=== PATIENT | male | born 1935 | race Caucasian/White ===

== ENCOUNTER 2020-12-13 14:13 | Outpatient (CLI) | payer MEDICARE, SELFPAY ==
--- NOTE | ~2020-12-13 | US_ITS ---
EXAMINATION: US art doppler w lilian LE BI DATE: 12/13/2020 14:56 INDICATION: Pulseless left foot TECHNIQUE: Segmental pressures and plethysmographic and Doppler waveforms of the brachial and lower e xtremity arteries were obtained. COMPARISON: None. FINDINGS: Right and left brachial artery pressures of 126 mm Hg and 136 mm Hg, respectively, are concordant (no rmal difference <= 30 mmHg). The right and left high-thigh pressure indices are 0.95 and 0.76, respec tively (normal > 1.2). The right ankle-brachial index (IVAN) is 0.85 (normal >= 0.9-1). The right great toe-brachial index (T BI) is 0.67 (normal >= 0.6-0.8). The right lower extremity segmental pressure gradients are increased between the right pnahv-sib-cpla and cdrwz-dwb-medz popliteal artery and between the right dorsalis pedis and posterior tibial artery (normal gradients <= 20-30 mmHg between adjacent levels on the same leg or the same levels on the two legs). Arterial waveforms are biphasic with brisk systolic upstrok es at both the right common femoral and superficial femoral arteries. Biphasic waveforms but with bro adened systolic peaks and delayed upstrokes at the right popliteal, posterior tibial and more promine ntly dorsalis pedis arteries. The left IVAN is 0.58. The left TBI is 0.82. The left lower extremity segmental pressure gradients are increased between the left gcser-wlo-krfm popliteal artery and the dorsalis pedis and posterior tibi al arteries. Arterial waveforms are biphasic with brisk systolic upstrokes at the left common femoral , superficial femoral and popliteal arteries with mildly delayed upstroke at the left posterior tibia l artery and more prominent broadening of the systolic peak and delayed upstroke at the left dorsalis pedis artery. IMPRESSION: 1. Arterial occlusive disease to the bilateral lower limbs with mildly right high thigh pressure inde x and IVAN and moderately decreased left high thigh pressure index and IVAN. Reviewed, dictated and finalized at location A. INSTALLER IMPRESSION: 1. Arterial occlusive disease to the bilateral lower limbs with mildly right hi gh thigh pressure index and IVAN and moderately decreased left high thigh pressu re index and IVAN.
== END 2020-12-13 14:14 | disposition home or self-care (01) ==
PROVIDERS: PCP Physician Assistant; Visit Provider Physician Assistant
DX: R09.89 Other specified symptoms and signs involving the circulatory and respiratory systems (principal); I73.9 Peripheral vascular disease, unspecified
CPT/HCPCS: 93923

== ENCOUNTER 2022-01-19 10:29 | Emergency (ER) | payer MEDICARE, SELFPAY ==
--- NOTE | ~2022-01-19 | XR_ITS ---
EXAMINATION: XR chest 2V EXAM DATE: 01/19/2022 10:58 INDICATION: left sided chest pain with sob 3-4 days TECHNIQUE: Frontal and lateral projections of the chest obtained and reviewed. Comparison is made to prior examination from 03/15/2014. FINDINGS: Small amount of bibasilar airspace disease, atelectasis or pneumonia. Please clinically co rrelate. Some scattered granulomata. Cardiomediastinal silhouette is normal. There are no osseous abn ormalities identified. IMPRESSION: Scattered bibasilar atelectasis or pneumonia. Reviewed, dictated and finalized at location A. ING MACHINE OPERATOR HELPER
--- NOTE | 2022-01-19 10:43 | ECG_ITS ---
Measurements Intervals [place] Rate: 80 P: 79 [place]: 184 QRS: 57 QRSD: 109 T: 61 QT: 360 QTc: 416 Interpretive Statements SINUS RHYTHM ATRIAL AND VENTRICULAR PREMATURE COMPLEXES BORDERLINE ST-T WAVE ABNORMALITY- INFERIOR LEADS BASELINE ARTIFACT- I, II, III, AVR, AVL, AVF, V1-V6 BORDERLINE ECG Electronically Signed On 01-19-2022 13:09:38 IRON PLASTIC BULLET MAKER by Anil Mendes D.O.
[2022-01-19 10:45] VITALS: BP 150/83; PULSE 86; RESP 20; TEMP 36.6; O2SAT 95
--- NOTE | 2022-01-19 10:55 | ED.CHESTPAIN ---
HPI - Chest Pain General Chief Complaint: Shortness of Breath/Dyspnea Stated Complaint: Chest Pain,Shortness of breath Time Seen by Provider: 01/19/22 10:35 Source: patient, family and RN notes reviewed Mode of arrival: ambulatory Limitations: no limitations History of Present Illness HPI narrative: Patient presents today complaining of left-sided upper chest pain radiating to the left shoulder that he describes as dull and achy. Pain began yesterday and has become, more intense this morning. States it was intermittent yesterday and is now constant. Pain is worsened when he takes a deep breath. He currently rates his pain 5/10 and has tried no interventions at home for the pain prior to arrival. History of A. fib for which he takes Eliquis. Patient is also complaining of shortness of breath. He does have shortness of breath on a daily basis, but it is significantly worse today. He has a chronic cough that is no worse than normal. History of COPD. Denies fever, weakness, nausea and vomiting, abdominal pain. Reports numbness and tingling in his lower extremities, but no worse than his normal diabetic neuropathy. Reports some swelling in his bilateral lower extremities, but no worse than normal. History of CHF. Patient was seen by his PCP on 12/31/2021 and placed on 10 days of Levaquin and a prednisone taper for lower respiratory infection. Patient states he was placed on these antibiotics for fluid in his ears and, fluid in my lungs. MD complaint: chest pain and other (Shortness of breath) Related Data Home Medications Medication Instructions Recorded Confirmed apixaban 5 mg tablet 5 mg PO BID 11/29/19 01/19/22 cyclosporine 0.05 % eye drops in a 1 drop EACH EYE Q12H 11/29/19 01/19/22 dropperette hydralazine 25 mg tablet 25 mg PO BID tablet 11/29/19 01/19/22 cholecalciferol (vitamin D3) 25 25 mcg PO DAILY 12/04/20 01/19/22 mcg (1,000 unit) capsule magnesium 250 mg tablet 250 mg PO DAILY 12/04/20 01/19/22 insulin glargine 100 unit/mL (3 35 unit SUB-Q DAILY ml 12/31/21 01/19/22 mL) subcutaneous pen insulin lispro 100 unit/mL 10 unit SUB-Q .QAC ml 12/31/21 01/19/22 subcutaneous pen Allergies Allergy/AdvReac Type Severity Reaction Status Date / Time Sulfa (Sulfonamide Allergy Mild Unknown Verified 01/19/22 10:44 Antibiotics) metoprolol Allergy Unknown Unknown Verified 01/19/22 10:44 sulfamethizole Allergy Unknown Unknown Verified 01/19/22 10:44 trimethoprim Allergy Unknown Unknown Verified 01/19/22 10:44 Review of Systems Review of Systems: CONSTITUTIONAL: Denies body aches, fever, chills, or sweats. EYES: Denies visual changes, redness, or discharge. ENT: Denies rhinorrhea, congestion, sore throat, or otalgia. CARDIOVASCULAR: Denies palpitations, or edema.+ Chest pain RESPIRATORY: Denies cough. + Shortness of breath GASTROINTESTINAL: Denies abdominal pain, nausea, vomiting, or diarrhea. GENITOURINARY: Denies dysuria or hematuria. SKIN: Denies rash, itching, or wounds. MUSCULOSKELETAL: Denies back pain, joint pain, or myalgia. NEUROLOGIC: Denies headache, numbness, tingling, or weakness. PSYCH: Denies depression or anxiety. [facility], [facility] Past Medical History Medical History Atrial fibrillation CAD (coronary artery disease) CHF (congestive heart failure) Diabetes Hyperlipidemia Hypertension Other lack of coordination Sjogrens syndrome Type 2 diabetes mellitus Surgical History Surgical History History of hemorrhoidectomy History of hernia repair Family History Family History Father Acute myocardial infarction Mother Family history of pancreatic cancer Other Cancer Diabetes mellitus Heart disease Social History Social History Smoking status: Former smoker
== END 2022-01-19 11:19 | disposition short-term general hospital (02) ==
PROVIDERS: Emergency Provider Nurse Practitioner; PCP Physician Assistant
DX: R06.02 Shortness of breath (principal); R07.9 Chest pain, unspecified; Z87.891 Personal history of nicotine dependence; I48.91 Unspecified atrial fibrillation; I25.10 Atherosclerotic heart disease of native coronary artery without angina pectoris; I11.0 Hypertensive heart disease with heart failure; I50.9 Heart failure, unspecified; E11.9 Type 2 diabetes mellitus without complications; M35.00 Sjogren syndrome, unspecified
CPT/HCPCS: 71046; 93005; 99213; G0463

== ENCOUNTER 2022-01-19 11:32 | Inpatient (IN) | payer MEDICARE, SELFPAY ==
[2022-01-19] VITALS (13 sets, daily range): BP systolic 108–161; BP diastolic 44–86; PULSE 47–88; RESP 18–33; TEMP 35.6–36.6; O2SAT 92–98; BMI 27.3
--- NOTE | ~2022-01-19 | XR_ITS ---
EXAMINATION: XR chest 2V EXAM DATE: 01/19/2022 11:58 INDICATION: Chest pain. TECHNIQUE: Frontal and lateral projections of the chest obtained and reviewed. Comparison is made to prior examination from earlier same date. FINDINGS: Probable scattered basilar airspace disease with low lung volume which suggests atelectasis . Pneumonia not excludable. No pneumothorax. Cardiomediastinal silhouette is normal. There are no oss eous abnormalities identified. IMPRESSION: Low lung volumes, adjacent atelectasis. Pneumonia not excludable. Reviewed, dictated and finalized at location A. RUMENT REPAIR SUPERVISOR
--- NOTE | 2022-01-19 11:35 | ECG_ITS ---
Measurements Intervals [place] Rate: 76 P: 78 [place]: 176 QRS: 59 QRSD: 97 T: 53 QT: 384 QTc: 433 Interpretive Statements SINUS RHYTHM WITH MARKED SINUS ARRHYTHMIA EARLY PRECORDIAL R/S TRANSITION BORDERLINE ST ABNORMALITY- ANTEROLATERAL LEADS BASELINE ARTIFACT- I, II, III, AVR, AVF, V1, V3-V6 BORDERLINE ECG Electronically Signed On 01-19-2022 13:10:25 CRABBING MACHINE OPERATOR by Anil Mendes D.O.
--- NOTE | 2022-01-19 11:55 | PC.NURSE ---
pt to Xray at this time.
[2022-01-19 11:58] LABS: Basophils Percent Auto 0.5 % (0.2-1.2); Eosinophils Absolute Auto 0.3 K/mm3 (0-0.3); Eosinophils Percent Auto 3.4 % (0-4.4); Hematocrit 47.9 % (42.0-52.0); Immature Granulocyte Absolute 0.04 K/mm3 (0.00-0.031); Immature Granulocyte Percent A 0.5 % (0-0.5); Lymphocytes Absolute Auto 1.28 K/mm3 (0.9-3.2); Lymphocytes Percent Auto 14.6 % (18.3-44.2); Mean Corpuscular HGB Conc 33.4 g/dl (32-36); Mean Corpuscular Hemoglobin 30.4 pg (26-34); Mean Corpuscular Volume 90.9 fl (80-100); Mean Platelet Volume 11.1 fl (7.4-10.4); Monocytes Absolute Auto 0.9 K/mm3 (0.1-0.6); Monocytes Percent Auto 10.3 % (2.6-8.5); Neutrophils Absolute Auto 6.2 K/mm3 (1.3-6.7); Neutrophils Percent Auto 70.7 % (45.5-73.1); Platelet Count Result 205 k/mm3 (150-375); Red Blood Count 5.27 M/mm3 (4.6-6.20); White Blood Count 8.8 K/mm3 (4.5-10.0)
[2022-01-19 12:08] LABS: INR 1.2; Prothrombin Time 14.4 Seconds (11.1-14.7)
[2022-01-19 12:09] LABS: Partial Thromboplastin Time 34.3 SECONDS (22.3-36.8)
[2022-01-19 12:13] LABS: Alanine Aminotransferase 28 U/L (4-50); Albumin Level 3.7 g/dL (3.5-5.1); Alkaline Phosphatase 222 U/L (38-126); Anion Gap 4 mmol/L (8-16); Aspartate Amino Transferase 34 U/L (17-59); Bilirubin,Total 0.7 mg/dL (0.2-1.3); Blood Urea Nitrogen 14 mg/dL (9-20); Calcium 8.7 mg/dL (8.4-10.2); Carbon Dioxide 28 mmol/L (22-30); Chloride 100 mmol/L (98-107); Estimated CRCL calculation 52 ml/min; Estimated Glomerular Filt Rate > 60; Glucose 201 mg/dL (65-110); Lipase 80 U/L (23-300); Sodium 132 mmol/L (137-145)
--- NOTE | 2022-01-19 12:24 | ED.CHESTPAIN ---
HPI - Chest Pain General Chief Complaint: Chest Pain Stated Complaint: chest pain Time Seen by Provider: 01/19/22 11:51 Source: patient and RN notes reviewed History of Present Illness HPI narrative: 86-year-old male presenting to the emergency department for evaluation of worsening chest pain and shortness of breath over the last 2 days. Patient states he did have an episode of bronchitis in the beginning of the month and was on antibiotics. Patient states over the last 2 days he has had worsening chest pain in the morning that does seem to improve during the day. Patient describes it as a pressure across the top of his chest and does radiate into his left shoulder. Patient does have shortness of baseline but states this has also worsened over the past 2 days. Patient denies any prior history of SD. Patient does not recall his last stress test. Patient does have history of atrial fibrillation and is on Eliquis Patient is vaccinated against COVID. Patient denies any recent fevers. Related Data Home Medications Medication Instructions Recorded Confirmed apixaban 5 mg tablet 5 mg PO BID 11/29/19 01/19/22 cyclosporine 0.05 % eye drops in a 1 drop EACH EYE Q12H 11/29/19 01/19/22 dropperette hydralazine 25 mg tablet 25 mg PO BID tablet 11/29/19 01/19/22 cholecalciferol (vitamin D3) 25 25 mcg PO DAILY 12/04/20 01/19/22 mcg (1,000 unit) capsule magnesium 250 mg tablet 250 mg PO DAILY 12/04/20 01/19/22 insulin glargine 100 unit/mL (3 35 unit SUB-Q DAILY ml 12/31/21 01/19/22 mL) subcutaneous pen insulin lispro 100 unit/mL 10 unit SUB-Q .QAC ml 12/31/21 01/19/22 subcutaneous pen Allergies Allergy/AdvReac Type Severity Reaction Status Date / Time Sulfa (Sulfonamide Allergy Mild Unknown Verified 01/19/22 11:47 Antibiotics) metoprolol Allergy Unknown Unknown Verified 01/19/22 11:47 sulfamethizole Allergy Unknown Unknown Verified 01/19/22 11:47 trimethoprim Allergy Unknown Unknown Verified 01/19/22 11:47 Review of Systems Review of Systems: CONSTITUTIONAL: Denies fever, chills, or sweats. EYES: Denies visual changes, redness, or discharge. ENT: Denies rhinorrhea, congestion, sore throat, or otalgia. CARDIOVASCULAR: Anterior chest pressure RESPIRATORY: Cough since beginning the month and worsening shortness of breath from baseline GASTROINTESTINAL: Denies abdominal pain, nausea, vomiting, or diarrhea. GENITOURINARY: Denies dysuria or hematuria. SKIN: Denies rash or itching. MUSCULOSKELETAL: Denies back pain, joint pain, or myalgia. NEUROLOGIC: Denies headache, numbness, or weakness. [facility] Past Medical History Medical History Atrial fibrillation CAD (coronary artery disease) CHF (congestive heart failure) Diabetes Hyperlipidemia Hypertension Other lack of coordination Sjogrens syndrome Type 2 diabetes mellitus Surgical History Surgical History History of hemorrhoidectomy History of hernia repair Family History Family History Father Acute myocardial infarction Mother Family history of pancreatic cancer Other Cancer Diabetes mellitus Heart disease Social History Social History Smoking status: Former smoker Second hand tobacco smoke exposure: No Smoking end date: 11/23/70 Alcohol intake: current Alcohol use details: 1 glass of beer weekly. Substance use: never Substance use type: does not use Gender identity (if verbalized by the patient): Male Exam Narrative: APPEARANCE: Well appearing, no pain, no distress, well-nourished. HEAD: normocephalic, atraumatic. EYES: PERRLA/EOMI, conjunctivae clear. NOSE: Normal no drainage EARS:TMS clear with good light reflex. THROAT: Pharynx clear, no exudate. NECK: Supple. No adenopathy, no masses. RES
[2022-01-19 12:54] LABS: NT Pro B Type Natriuretic Pept 1170 pg/mL (5-100)
[2022-01-19] MEDS: ASPIRIN 81 MG CHEWABLE TABLET 324 MG PO (13:08)
[2022-01-19] MEDS: FUROSEMIDE INJ 40 MG/4 ML VIAL IV PUSH (13:08)
[2022-01-19] MEDS: MORPHINE SULFATE (*CRX) 2 MG/ML INJ IV PUSH (13:09)
[2022-01-19] MEDS: NITROGLYCERIN OINTMENT 1 INCH DOSE TRANSDERM ×3 (13:10→23:14)
[2022-01-19 13:13] LABS: SARS-CoV-2 RNA PCR Negative
[2022-01-19] MEDS: ATORVASTATIN 10 MG TABLET PO (14:15)
--- NOTE | 2022-01-19 14:53 | ADMGEN ---
This patient, Reed Blair, was admitted to IMU Room 201-01 at 1453. Patient/family oriented to hospital policies and general routines including ID bracelet, bed and alarms, visiting hours, pain management, procedures, bathroom and other care routines, personal items, smoking policy, room service/diet, and visiting hours. Information on how to activate the Rapid Response Team has been discussed. Patient/Family are encouraged to report perceived risks to care and to ask questions if they do not understand what they are told or what they should do.
--- NOTE | 2022-01-19 15:49 | PM.IMHP ---
H&P: HPI History of Present Illness Date/Time: Patient requires inpatient monitoring with expected length of stay to exceed 2 midnights for management of care. 01/19/22 15:49 Chief Complaint: Mr. Blair is an 86-year-old male who presented to the emergency room with complaints of chest discomfort. Patient has a known history of diabetes mellitus, hypertension, dyslipidemia, hyperkalemia, atrial fibrillation, and chronic bronchitis. Patient states he has had company over this weekend and he was sitting around talking his company and he began having chest discomfort over his left upper chest that radiated into his left shoulder. Patient denies any radiation pain to his arm or to his neck. Patient denied any associated nausea, vomiting, or diaphoresis. Patient states the pain lasted a few hours until he arrived to the emergency room received nitroglycerin and morphine. Patient denies any history of coronary artery disease. Patient states he has chronic shortness of breath secondary to his bronchitis, but when he was having his chest discomfort he did feel that his shortness of breath mildly worse. Upon evaluation in emergency room patient was noted to have an initial troponin 5.78. Patient's EKG showed no acute changes. Patient was given aspirin, statin, and 1 in of nitropaste. Review of Systems Review of Systems: A 12 point review of systems was completed patient all pertinent positive and negative per HPI the remainder are unremarkable. [facility] Past Medical History Medical History Atrial fibrillation CAD (coronary artery disease) CHF (congestive heart failure) Diabetes Hyperlipidemia Hypertension Other lack of coordination Sjogrens syndrome Type 2 diabetes mellitus Surgical History Surgical History History of hemorrhoidectomy History of hernia repair Family History Family History Father Acute myocardial infarction Mother Family history of pancreatic cancer Other Cancer Diabetes mellitus Heart disease Social History Social History Smoking packs per day: 0.5 Smoking cigarettes per day: 10.0 Years smoked: 20 Smoking pack-years: 10.00 Smoking status: Former smoker Tobacco type: cigarettes Second hand tobacco smoke exposure: No Smoking end date: 11/23/70 Alcohol intake: current Drinks per week: 1 Alcohol use details: 1 glass of beer weekly. Substance use: never Substance use type: does not use Gender identity (if verbalized by the patient): Male Spiritual care concerns: No Meds Home Medications and Allergies Home Medications Medication Instructions Recorded Confirmed Type apixaban 5 mg tablet 5 mg PO BID 11/29/19 01/19/22 History cyclosporine 0.05 % eye drops in a 1 drop EACH EYE Q12H 11/29/19 01/19/22 History dropperette hydralazine 25 mg tablet 25 mg PO BID tablet 11/29/19 01/19/22 History cholecalciferol (vitamin D3) 25 25 mcg PO DAILY 12/04/20 01/19/22 History mcg (1,000 unit) capsule magnesium 250 mg tablet 250 mg PO DAILY 12/04/20 01/19/22 History diltiazem HCl 240 mg capsule,24 480 mg PO DAILY #180 cap 03/15/21 01/19/22 Rx hr,extended release blood sugar diagnostic See Rx Instructions .ROUTE 06/20/21 01/19/22 Rx .COMPLEX #200 strip flash glucose sensor #2 ea 08/07/21 01/19/22 Rx albuterol sulfate 90 mcg/actuation 1 inh INHALATION Q4H PRN #8.5 g 09/10/21 01/19/22 Rx aerosol inhaler furosemide 20 mg tablet 20 mg PO QAM #90 tablet 09/23/21 01/19/22 Rx ipratropium 20 mcg-albuterol 100 See Rx Instructions .ROUTE 10/14/21 01/19/22 Rx mcg/actuation mist for inhalation .COMPLEX #4 g irbesartan 150 mg tablet 150 mg PO DAILY #90 tablet 11/13/21 01/19/22 Rx pen needle, diabetic 32 gauge x See Rx Instructions .ROUTE 12/24/2101/19
[2022-01-19] MEDS: METOPROLOL TARTRATE 12.5 MG TABLET PO (16:20)
[2022-01-19 17:09] LABS: Hemoglobin A1C 9.2 % (<5.7)
[2022-01-19] MEDS: INSULIN ASPART (*BKC) 100 UNITS/ML SUB-Q (17:09)
[2022-01-19] MEDS: INSULIN ASPART (*BKC) 100 UNITS/ML 10 UNITS SUB-Q (17:09)
[2022-01-19 20:12] LABS: Glucose Point of Care 352 mg/dl (65-105)
[2022-01-19] MEDS: hydrALAZINE HCL 25 MG TABLET PO (20:38)
[2022-01-19] MEDS: APIXABAN 5 MG TABLET PO (20:38)
[2022-01-19] MEDS: cycloSPORINE 0.4 ML OPHTH SOLUTION 1 DROP EACH EYE (20:38)
[2022-01-19] MEDS: INSULIN GLARGINE (*BKC) 100 UNITS/ML 35 UNITS SUB-Q (23:14)
[2022-01-20] VITALS (17 sets, daily range): BP systolic 118–148; BP diastolic 47–64; PULSE 58–76; RESP 16–18; TEMP 35.6–36.6; O2SAT 92–97
[2022-01-20 04:50] LABS: Basophils Percent Auto 0.3 % (0.2-1.2); Eosinophils Absolute Auto 0.3 K/mm3 (0-0.3); Eosinophils Percent Auto 3.5 % (0-4.4); Hematocrit 43.4 % (42.0-52.0); Hemoglobin 14.5 g/dL (14.0-18.0); Immature Granulocyte Absolute 0.05 K/mm3 (0.00-0.031); Immature Granulocyte Percent A 0.5 % (0-0.5); Lymphocytes Absolute Auto 1.53 K/mm3 (0.9-3.2); Lymphocytes Percent Auto 16.8 % (18.3-44.2); Mean Corpuscular HGB Conc 33.4 g/dl (32-36); Mean Corpuscular Hemoglobin 30.7 pg (26-34); Mean Corpuscular Volume 91.9 fl (80-100); Mean Platelet Volume 11.3 fl (7.4-10.4); Monocytes Absolute Auto 0.9 K/mm3 (0.1-0.6); Monocytes Percent Auto 9.8 % (2.6-8.5); Neutrophils Absolute Auto 6.3 K/mm3 (1.3-6.7); Neutrophils Percent Auto 69.1 % (45.5-73.1); Platelet Count Result 199 k/mm3 (150-375); Red Blood Count 4.72 M/mm3 (4.6-6.20); White Blood Count 9.1 K/mm3 (4.5-10.0)
[2022-01-20] MEDS: NITROGLYCERIN OINTMENT 1 INCH DOSE TRANSDERM ×2 (05:07→18:34)
[2022-01-20 05:15] LABS: Alanine Aminotransferase 23 U/L (4-50); Alkaline Phosphatase 167 U/L (38-126); Anion Gap 3 mmol/L (8-16); Aspartate Amino Transferase 31 U/L (17-59); Bilirubin,Total 0.7 mg/dL (0.2-1.3); Blood Urea Nitrogen 20 mg/dL (9-20); Calcium 7.9 mg/dL (8.4-10.2); Carbon Dioxide 28 mmol/L (22-30); Chloride 99 mmol/L (98-107); Estimated CRCL calculation 44 ml/min; Estimated Glomerular Filt Rate 58; Glucose 232 mg/dL (65-110); Sodium 130 mmol/L (137-145)
[2022-01-20 08:34] LABS: Glucose Point of Care 249 mg/dl (65-105)
[2022-01-20] MEDS: INSULIN ASPART (*BKC) 100 UNITS/ML SUB-Q ×3 (08:49→18:19)
[2022-01-20] MEDS: FUROSEMIDE 20 MG TABLET PO (08:56)
[2022-01-20] MEDS: MAGNESIUM 13.5 MG TABLET (250 MG MAG GLUCONATE) PO (08:56)
[2022-01-20] MEDS: CHOLECALCIFEROL 1,000 UNITS TABLET 1000 UNITS PO (08:57)
[2022-01-20] MEDS: IRBESARTAN 150 MG TABLET PO (08:57)
[2022-01-20] MEDS: cycloSPORINE 0.4 ML OPHTH SOLUTION 1 DROP EACH EYE ×2 (08:57→22:26)
[2022-01-20] MEDS: ASPIRIN 81 MG CHEWABLE TABLET PO (09:03)
[2022-01-20] MEDS: hydrALAZINE HCL 25 MG TABLET PO ×2 (09:10→21:52)
[2022-01-20] MEDS: METOPROLOL TARTRATE 12.5 MG TABLET PO ×2 (09:10→21:52)
[2022-01-20] MEDS: ATORVASTATIN 40 MG TABLET PO (10:22)
--- NOTE | 2022-01-20 11:29 | PM.CNCAR ---
Assessment and Plan Additional Plan This is a very pleasant 86-year-old man with: Acute non ST-elevation NJ with symptoms of chest pain for several days which have now resolved. He has a significant troponin rise indicating acute myocardial injury has clearly occurred. ECG only showed some very subtle ST depression in lead V5 and V6. I was informed of the situation yesterday afternoon and advised admission and discontinuance of his anticoagulation so that an angiogram could be performed. Since he is clinically stable no longer having any chest pain I would anticipate proceeding with this angiogram on Thursday when he has had no anticoagulation for at least 48 hours. If he becomes symptomatic/unstable we can proceed earlier although at this time an angiogram would have substantially higher hemorrhagic risks. In anticipation of this now with the diagnosis of coronary disease I am going to start decreasing the dose of his diltiazem so that beta-blockers can be more affectively introduced as well. Michael Lowry MD [facility] History of Present Illness History of Present Illness Consult date/time: 01/20/22 11:29 Consult reason: chest pain Reason For Visit: NSTEMI Narrative: This is a very pleasant 86-year-old man that I am seeing this morning at the request hospitalist because of obvious evidence that a non ST elevation NJ has occurred. The patient is known to my partner, Dr. Fall who follows him in the office for a number of years with a history of paroxysmal atrial fibrillation. For this he takes a combination of apixaban and diltiazem at unusually high dosage. In any event he has been stable until several days prior to coming in the hospital when he started to experience episodes of chest pain. The chest pain is described as a pressure-like sensation in the center of the chest with some radiation into the left arm at times. The symptoms were not too severe but in the last 48 hours became worsened last afternoon he did finally decided to come to the emergency room for evaluation. His electrocardiogram shows him to be in sinus rhythm with no significant ST or T-wave abnormalities. The 2nd EKG did show some lateral ST depression in lead V5 and V6. Troponin levels were already elevated on admission at over 5 and hao to a high of over 8. Since being admitted to the hospital he is asymptomatic and says that he feels well. The patient is anticoagulated with apixaban as mentioned above. He did receive a dose last evening. Since then it has been discontinued. Once again he does not have any previous history of overt coronary artery disease. Since admission per my instructions he has been given aspirin, metoprolol and nitrates. Review of Systems Constitutional: Constitutional: Reports no additional constitutional complaints Eyes: Eyes: Reports no additional eye complaints ENT: Reports system reviewed and no additional complaints, except as documented Cardiovascular: Cardiovascular: Reports as per HPI and Reports chest pain Respiratory: Respiratory: Reports no additional respiratory complaints Gastrointestinal: Gastrointestinal: Reports no additional gastrointestinal complaints Musculoskeletal: Musculoskeletal: Reports arthralgias Neurologic: Reports system reviewed and no additional complaints, except as documented Psychiatric: Psychiatric: Reports no additional psychiatric complaints Endocrine: Endocrine: Reports no additional endocrine complaints Hematologic/Lymphatic: Hematologic/Lymphatic: Reports no additional hematologic/lymphatic complaints Allergic/Immunologic: Allergic/Immunologic: Reports no additional allergic/immunologic complaints PMFSH Past Medical History Medical History Atrial fibrillation CAD (coronary artery disease) CHF (congestive heart failure) Diabetes Hyperlipidemia Hypertension Other lack of coordination Sjogrens syndrome Type 2 diabetes m
[2022-01-20 12:27] LABS: Glucose Point of Care 212 mg/dl (65-105)
--- NOTE | 2022-01-20 12:28 | PM.IMPN ---
Progress Note: A&P Assessment and Plan (1) Non-ST elevation ID (NSTEMI): Code(s): I21.4 - Non-ST elevation (NSTEMI) myocardial infarction Status: Acute Assessment and Plan: - Troponin's have continued to rise to this point of 8.450. Will continue to Trend. - Patient now with pain control. - Cardiology consulted and planning on Angiogram in two days to give time for Geovanna to fully be out of his system, unless needed more emergently. - Cardiology is going to start reducing the patient's dose of Cardizem so as to re-introduce Beta Blockers to work more effectively. (2) COPD (chronic obstructive pulmonary disease): Qualifiers: COPD type: unspecified COPD Qualified Code(s): J44.9 - Chronic obstructive pulmonary disease, unspecified Code(s): J44.9 - Chronic obstructive pulmonary disease, unspecified Status: Acute Assessment and Plan: - Will resume patient's home medications. (3) Paroxysmal atrial fibrillation: Code(s): I48.0 - Paroxysmal atrial fibrillation Status: Acute Assessment and Plan: - At this point time patient is in normal sinus rhythm with PACs. 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 - A1C was checked and it has increased to 9.2. - Continue Glucose checks. (5) Primary hypertension: Code(s): I10 - Essential (primary) hypertension Status: Acute Assessment and Plan: - Will resume patient's home medications and adjust accordingly for optimal blood pressure control. Time Spent With Patient Time with patient: 15 - 25 minutes Subjective Date/time seen: 01/20/22 This pt. was examined at the bedside today in interval assessment. He was admitted to the hospital last evening with an acute NSTEMI. He still has some slight pain in the chest that he stated started three days ago on the left side and radiates to the left shoulder. He has no Dyspnea. His troponin has continued to rise to >8 at this time. He was evaluated by Cardiology this morning and Dr. Lowry will take to the seed analysis laboratory assistant on Thursday and re-evaluate in the meantime and if any emergent needs, the pt. can be catheterized sooner. Cardizem is gong to be decreased at this time so that beta blockers can be re-introduced more effectively after cath. The pt's pain is currently well controlled with Nitro and his VSS. Review of Systems Review of Systems: A 12 point ROS was reviewed and is unremarkable except as noted in HPI. All systems reviewed & are unremarkable except as noted in HPI and below Exam Narrative: Constitutional: Patient is well-nourished in no acute distress. Patient is alert oriented x3 HEENT: Moist mucous membranes. No scleral icterus. No lymphadenopathy. Neck: No carotid bruits noted no JVD noted Lungs: Lung sounds are clear to auscultation bilaterally. No accessory muscle use. No rhonchi, rales, or wheezes noted. Cardiovascular: Apical pulse is regular rate and rhythm. S1-S2 noted, no S3 or S4 noted. No gallops, murmurs, or rubs noted. Abdomen: Soft, round, and nontender. No palpable masses. Extremities: 2 to 3+ edema noted bilateral lower extremities. Nontender. Skin: No rashes or lesions. Warm and dry. Skin is intact. Neurological: No focal neurological deficits. Cranial nerves II-XII grossly intact. Psychiatric: Cooperative, appropriate mood, and affect Objective Data Vital Signs Vital Signs: Vital Signs - 24 hr 01/19/22 13:18 01/19/22 14:32 01/19/22 15:11 Temperature Pulse Rate 76 76 Respiratory Rate 18 18 Blood Pressure 150/72 H 123/82 Pulse Oximetry 98 97 96 01/19/22 15:14 01/19/22 16:00 01/19/22 16:20 Temperature 97.8 F 97.8 F Pulse Rate 71 72 88 Respiratory
[2022-01-20] MEDS: INSULIN ASPART (*BKC) 100 UNITS/ML 10 UNITS SUB-Q ×2 (12:59→18:20)
[2022-01-20 17:15] LABS: Glucose Point of Care 260 mg/dl (65-105)
[2022-01-20 20:18] LABS: Glucose Point of Care 294 mg/dl (65-105)
[2022-01-20] MEDS: INSULIN GLARGINE (*BKC) 100 UNITS/ML 35 UNITS SUB-Q (21:58)
[2022-01-21] VITALS (16 sets, daily range): BP systolic 110–141; BP diastolic 42–74; PULSE 61–74; RESP 18–26; TEMP 35.6–36.9; O2SAT 94–98
--- NOTE | 2022-01-21 | ECHO_ITS ---
Patient Info Name: Reed Blair Age: 86 years : 1935 Gender: Male Ht: 72 in Wt: 198 lbs BSA: 2.15 m2 HR: 62 bpm BP: 136 / 59 mmHg Heart Rhythm: Sinus Rhythm Technical Quality: Fair Exam Date: 01/21/2022 1:07 PM Exam Location: [facility] Pulmonary Patient Status: Inpatient Admit Date: 01/19/2022 Staff Ordering Physician: Alin Lee MD Manager Group: Mamta Jerome RDCS Attending Provider: Sofía Mendoza Exam Type: CA echo dop color flow w con Study Info Indications - Non-Stemi Complete two-dimensional, color flow and Doppler transthoracic echocardiogram is performed with contrast to opacify the left ventricle and to improve the deliniation of the left ventricle endocardial borders. Contrast/Agitated Saline Contrast/Ag. Saline: Definity Amount: 2.00 ml Administered By: Mamta Jerome RDCS Existing IV Access: Yes IV Access Condition: patent with no signs of infiltration Summary 1. Left ventricular chamber dimension is normal. 2. Left ventricular systolic function is normal, estimated at 65-70%. 3. There is moderately increased left ventricular wall thickness. 4. The left ventricular diastolic function is grade I diastolic dysfunction. 5. The inferior wall is hypokinetic. 6. Left atrial chamber dimension is moderately enlarged. 7. The mitral valve has thickened leaflets and calcified annulus. 8. The aortic root size at the sinus of Valsalva is mildly dilated. Left Ventricle Left ventricular chamber dimension is normal. Left ventricular systolic function is normal, estimated at 65-70%. There is moderately increased left ventricular wall thickness. The left ventricular diastolic function is grade I diastolic dysfunction. The inferior wall is hypokinetic. All other pedraza appear normal. Right Ventricle Right ventricular chamber dimension is normal. Right ventricular systolic function is normal. Left Atria Left atrial chamber dimension is moderately enlarged. Right Atria Right atrial chamber dimension is normal. Atrial Septum Intact interatrial septum visualized by color flow imaging. Aortic Valve The aortic valve is trileaflet. There is mild aortic valve sclerosis. There is no aortic valve stenosis. There is trace aortic valve regurgitation. Pulmonic Valve The pulmonic valve is normal. There is no pulmonic valve stenosis. There is mild pulmonic regurgitation. Mitral Valve The mitral valve has thickened leaflets and calcified annulus. There is no mitral valve stenosis. There is trace mitral valve regurgitation. Tricuspid Valve The tricuspid valve leaflets are normal. There is no significant tricuspid valve stenosis. There is trace tricuspid valve regurgitation. No pulmonary hypertension, estimated pulmonary arterial systolic pressure is 16 mmHg. Pericardium/Pleural The pericardium appears normal. There is no pericardial effusion. Inferior Vena Cava Normal inferior vena cava with >50% collapse upon inspiration consistent with normal right atrial pressure, 10 mmHg. Aorta The aortic root size at the sinus of Valsalva is mildly dilated. Left Ventricular Outflow Tract Name Value Normal LVOT Doppler
[2022-01-21] MEDS: NITROGLYCERIN OINTMENT 1 INCH DOSE TRANSDERM ×5 (00:24→23:27)
--- NOTE | 2022-01-21 06:01 | ECG_ITS ---
Measurements Intervals [place] Rate: 70 P: 75 TN: 215 QRS: 61 QRSD: 99 T: 39 QT: 397 QTc: 431 Interpretive Statements SINUS RHYTHM WITH FIRST DEGREE AV BLOCK WITH OCCASIONAL VENTRICULAR PREMATURE COMPLEXES COMPARED TO ECG 01/19/2022 11:41:49 FIRST DEGREE AV BLOCK NOW PRESENT Electronically Signed On 01-21-2022 12:24:51 CHILD PSYCHIATRIST by Alin Lee M.D.
[2022-01-21] MEDS: MORPHINE SULFATE (*CRX) 2 MG/ML INJ IV PUSH (06:20)
[2022-01-21] MEDS: NITROGLYCERIN SL 0.4 MG TABLET SUBLINGUAL ×3 (07:05→07:15)
[2022-01-21] MEDS: METOPROLOL TARTRATE INJ 5 MG/5 ML VIAL IV PUSH (07:17)
[2022-01-21] MEDS: INSULIN ASPART (*BKC) 100 UNITS/ML SUB-Q ×3 (08:48→17:16)
[2022-01-21] MEDS: IRBESARTAN 150 MG TABLET PO (08:54)
[2022-01-21] MEDS: FUROSEMIDE 20 MG TABLET PO (08:55)
[2022-01-21] MEDS: ASPIRIN 81 MG CHEWABLE TABLET PO (08:55)
[2022-01-21] MEDS: ATORVASTATIN 40 MG TABLET PO (08:55)
[2022-01-21] MEDS: hydrALAZINE HCL 25 MG TABLET PO ×2 (08:55→20:23)
[2022-01-21] MEDS: MAGNESIUM 13.5 MG TABLET (250 MG MAG GLUCONATE) PO (08:55)
[2022-01-21] MEDS: CHOLECALCIFEROL 1,000 UNITS TABLET 1000 UNITS PO (08:56)
[2022-01-21] MEDS: cycloSPORINE 0.4 ML OPHTH SOLUTION 1 DROP EACH EYE ×2 (08:56→20:23)
[2022-01-21 09:09] LABS: Glucose Point of Care 331 mg/dl (65-105)
[2022-01-21 11:01] LABS: Add Urine Microscopic? YES; Appearance Urine Clear (Clear); Bilirubin Urine Negative (Negative); Blood Urine Negative (Negative); Color Urine Yellow (Yellow); Glucose Urine UA 3+ mg/dL (Negative); Ketones Urine Trace mg/dL (Negative); Leukocyte Esterase Ur Negative LEU/UL (Negative); Nitrate Urine Negative (Negative); Protein Urine Negative (Negative); RBC Urine 0-2 /hpf (0-2); Specific Grav Ur 1.025 (1.001-1.035); Urobilinogen Urine Negative mg/dL (<2.0); WBC Urine 0-3 /hpf
--- NOTE | 2022-01-21 11:13 | PM.PNCARD ---
Progress Note: A&P Assessment and Plan (1) Non-ST elevation [place] (NSTEMI): Code(s): I21.4 - Non-ST elevation (NSTEMI) myocardial infarction Status: Acute Assessment and Plan: Patient presented with chest pain, found to have non ST-elevation myocardial infarction. He will undergo invasive strategy with coronary angiogram with an eye towards intervention, however, the cardiac catheterization is being delayed due patient being on chronic anticoagulation with apixaban. -patient will undergo cardiac catheterization tomorrow, sooner if any clinical or electrical instability. -continue to hold apixaban. -start anticoagulation with unfractionated heparin, monitor PTT. -continue aspirin, metoprolol tartrate, statin. -echocardiogram with Doppler. Discontinue diltiazem if LV systolic dysfunction. -I spoke in detail with patient and also his son was over the phone. -keep NPO from midnight. (2) Paroxysmal atrial fibrillation: Code(s): I48.0 - Paroxysmal atrial fibrillation Status: Acute Assessment and Plan: Apixaban is on hold in anticipation for cardiac catheterization. Patient to be initiated on anticoagulation with unfractionated heparin, both for ACS and PAF. Subjective Date/time seen: 01/21/22 11:13 Date of service 01/21/2022: Patient had an episode of chest discomfort this morning relieved with nitroglycerin. At the time of evaluation, denied any ongoing chest pain or shortness of breath. On telemetry, he is in sinus rhythm. Exam Narrative: PHYSICAL EXAMINATION: GENERAL: Alert, oriented, no acute distress MENTAL STATUS: affect appropriate to mood EYES: Extraocular movements intact, no pallor EARS: External ears appear normal, hearing grossly normal NOSE: Normal and patent, no discharge MOUTH: Mucous membranes moist, tongue normal NECK: Supple, no JVD CHEST: Good respiratory effort, clear to auscultation HEART: Normal rate, regular rhythm, normal S1 and S2 ABDOMEN: Soft, nontender NEUROLOGICAL: Alert, oriented, normal speech, no gross motor deficits MUSCULOSKELETAL: No major deformity, no amputation EXTREMITIES: Trace edema, no clubbing, no cyanosis SKIN: no rash on the exposed area, no cyanosis PSYCHIATRIC: Normal mood, appropriate affect Objective Data Vital Signs Vital Signs: Vital Signs - 24 hr 01/20/22 12:00 01/20/22 14:00 01/20/22 16:00 Temperature 36.5 C 36.4 C Pulse Rate 58 L 74 66 Respiratory Rate 18 16 Blood Pressure 119/55 L 148/59 H Pulse Oximetry 94 94 01/20/22 18:00 01/20/22 20:00 01/20/22 20:12 Temperature 35.6 C L Pulse Rate 70 66 Respiratory Rate 18 Blood Pressure 137/54 L Pulse Oximetry 94 93 01/20/22 21:52 01/20/22 22:00 01/21/22 00:00 Temperature 35.6 C L Pulse Rate 70 68 63 Respiratory Rate 18 Blood Pressure 118/42 L Pulse Oximetry 94 01/21/22 02:00 01/21/22 04:00 01/21/22 06:00 Temperature 36.2 C L Pulse Rate 61 64 66 Respiratory Rate 18 Blood Pressure 135/50 L Pulse Oximetry 97 01/21/22 07:17 01/21/22 07:28 01/21/22 08:00 Temperature 36.3 C L Pulse Rate 70 64 73 Respiratory Rate 18 Blood Pressure 124/55 L 136/59 L Pulse Oximetry 94 96 01/21/22 10:00 Temperature Pulse Rate 62 Respiratory Rate Blood Pressure Pulse Oximetry Intake/Output Intake/Output: Intake & Output 01/18/22 01/19/22 01/20/22 01/21/22 23:59 23:59 23:59 23:59 Intake Total 700 1260 Output Total 450 1000 1125 Balance 250 260 -1125 Meds/Results Medications: Active Medications Generic Name Dose Route Start Last Admin Trade Name Freq PRN Reason Stop Dose Admin Albuterol 1 puff 01/19/22 15:59 Albuterol Sulfate (*Sp) Aerosol 1 Puff INHALATION Q4H PRN shortness of breath or wheezing Aspirin 81 mg 01/20/22 08:00 01/21/22 08:55 Aspirin 81 Mg Chewable Tablet PO 81 mg DAILY@0800 MILA Administration Atorvastatin Calcium 40 mg 01/20/22 09:00 01/21/22 08:55 Atorv
[2022-01-21 12:16] LABS: Basophils Percent Auto 0.6 % (0.2-1.2); Eosinophils Absolute Auto 0.2 K/mm3 (0-0.3); Eosinophils Percent Auto 2.3 % (0-4.4); Hematocrit 45.6 % (42.0-52.0); Hemoglobin 15.8 g/dL (14.0-18.0); Immature Granulocyte Absolute 0.02 K/mm3 (0.00-0.031); Immature Granulocyte Percent A 0.3 % (0-0.5); Lymphocytes Absolute Auto 1.29 K/mm3 (0.9-3.2); Lymphocytes Percent Auto 18.8 % (18.3-44.2); Mean Corpuscular HGB Conc 34.6 g/dl (32-36); Mean Corpuscular Hemoglobin 30.7 pg (26-34); Mean Corpuscular Volume 88.7 fl (80-100); Monocytes Absolute Auto 0.8 K/mm3 (0.1-0.6); Monocytes Percent Auto 11.2 % (2.6-8.5); Neutrophils Absolute Auto 4.6 K/mm3 (1.3-6.7); Neutrophils Percent Auto 66.8 % (45.5-73.1); Platelet Count Result 223 k/mm3 (150-375); Red Blood Count 5.14 M/mm3 (4.6-6.20); Red Cell Distribution Width 12.6 % (11.5-14.5); White Blood Count 6.9 K/mm3 (4.5-10.0)
[2022-01-21] MEDS: HEPARIN SOD/D5W 100 UNITS/ML 25,000 UNITS/250 ML BAG 10 UNITS IV CONT (12:20)
[2022-01-21 12:26] LABS: INR 1.1; Prothrombin Time 14.2 Seconds (11.1-14.7)
[2022-01-21 12:27] LABS: Partial Thromboplastin Time 32.8 SECONDS (22.3-36.8)
[2022-01-21] MEDS: INSULIN ASPART (*BKC) 100 UNITS/ML 10 UNITS SUB-Q ×2 (12:33→17:17)
[2022-01-21 12:48] LABS: Glucose Point of Care 262 mg/dl (65-105)
--- NOTE | 2022-01-21 13:01 | PM.IMPN ---
Progress Note: A&P Assessment and Plan (1) Non-ST elevation [place] (NSTEMI): Code(s): I21.4 - Non-ST elevation (NSTEMI) myocardial infarction Status: Acute Assessment and Plan: - Troponin's continued to rise and have now leveled off in the 8's. - Patient now with pain control. - Cath tomorrow per Cardiology. Hold all anticoagulants and NPO after MN. - Cardiology is going to start reducing the patient's dose of Cardizem so as to re-introduce Beta Blockers to work more effectively. (2) COPD (chronic obstructive pulmonary disease): Qualifiers: COPD type: unspecified COPD Qualified Code(s): J44.9 - Chronic obstructive pulmonary disease, unspecified Code(s): J44.9 - Chronic obstructive pulmonary disease, unspecified Status: Acute Assessment and Plan: - Will resume patient's home medications. (3) Paroxysmal atrial fibrillation: Code(s): I48.0 - Paroxysmal atrial fibrillation Status: Acute Assessment and Plan: - At this point time patient is in normal sinus rhythm with PACs. - As we are holding anticoagulants, will order SCD's for patient for continued DVT prophylaxis. (4) Type 2 diabetes mellitus with diabetic neuropathy, with long-term current use of insulin: Code(s): E11.40 - Type 2 diabetes mellitus with diabetic neuropathy, unspecified; Z79.4 - nursing home (current) use of insulin Status: Acute Assessment and Plan: - Continue SSI and Lantus at HS. - A1C was checked and it has increased to 9.2. - Continue Glucose checks. (5) Primary hypertension: Code(s): I10 - Essential (primary) hypertension Status: Acute Assessment and Plan: - Will resume patient's home medications and adjust accordingly for optimal blood pressure control. Subjective Date/time seen: 01/21/22 0850 This pt. was examined at the bedside this morning in interval assessment. He has had some CP this morning that has required Morphine as well as some Nitroglycerin this morning to control pain and he is now without significant distress. Cardiology has rounded and the plan is to keep NPO after midnight and the pt. will be taken to the laboratory associate tomorrow for angiography. Currently anticoagulation is on hold. The pt. did tell his evening RN that he has had some difficulty with urination secondary to pain. UA is ordered and there are no infectious findings. The pt. has no other complaints at this time. Review of Systems Review of Systems: A 12 point ROS is performed and is unremarkable except as noted in HPI. All systems reviewed & are unremarkable except as noted in HPI and below Exam Narrative: Constitutional: Patient is well-nourished in no acute distress. Patient is alert oriented x3 HEENT: Moist mucous membranes. No scleral icterus. No lymphadenopathy. Neck: No carotid bruits noted no JVD noted Lungs: Lung sounds are clear to auscultation bilaterally. No accessory muscle use. No rhonchi, rales, or wheezes noted. Cardiovascular: Apical pulse is regular rate and rhythm. S1-S2 noted, no S3 or S4 noted. No gallops, murmurs, or rubs noted. Abdomen: Soft, round, and nontender. No palpable masses. Extremities: 2 to 3+ edema noted bilateral lower extremities. Nontender. Skin: No rashes or lesions. Warm and dry. Skin is intact. Neurological: No focal neurological deficits. Cranial nerves II-XII grossly intact. Psychiatric: Cooperative, appropriate mood, and affect Objective Data Vital Signs Vital Signs: Vital Signs - 24 hr 01/20/22 14:00 01/20/22 16:00 01/20/22 18:00 Temperature 97.6 F Pulse Rate 74 66 70 Respiratory Rate 16 Blood Pressure 148/59 H Pulse Oximetry 94 01/20/22 20:00 01/20/22 20:12 01/20/22 21:52 Temperature 96.1 F L Pulse Rate 66 70 Respiratory Rate 18 Blood Pressure 137/54 L Pulse Oximetry 94 93 01/20/22 22:00 01/21/22 00:00 01/21/22 02:00 Temperature 96.0 F L Pulse Rate 68 63 61 Respiratory Rate
[2022-01-21] MEDS: PERFLUTREN LIPID MICROSPHERES 1.5 ML VIAL DILUTED TO 10 ML TOTAL VOLUME IV PUSH (13:55)
--- NOTE | 2022-01-21 13:56 | IVDEFINITY ---
Prior to administration of IV Definity the patient was educated on the risks and benefits of the imaging enhancing agent including potential adverse side effects. The patient verbalized understanding. Allergies were verified. No exclusion criteria were identified and at least one of the following inclusion criteria were met: 1) physician request, 2) patient technically difficult to image (per the [place] [employer]ocardi[employer] guidelines of two or more segments not discernable within the apical view), or 3) questionable left ventricular function. ?
[2022-01-21] MEDS: SODIUM CHLORIDE 0.9% IV 500 ML 100 ML IV CONT (16:24)
[2022-01-21 17:49] LABS: Glucose Point of Care 205 mg/dl (65-105)
[2022-01-21 18:43] LABS: Partial Thromboplastin Time 53.6 SECONDS (22.3-36.8)
[2022-01-21] MEDS: HEPARIN SODIUM 5,000 UNITS/ML VIAL 4000 UNITS IV PUSH (18:58)
[2022-01-21 20:08] LABS: Glucose Point of Care 357 mg/dl (65-105)
[2022-01-21] MEDS: METOPROLOL TARTRATE 12.5 MG TABLET PO (20:23)
[2022-01-21] MEDS: INSULIN GLARGINE (*BKC) 100 UNITS/ML 35 UNITS SUB-Q (20:23)
[2022-01-22] VITALS (35 sets, daily range): BP systolic 119–152; BP diastolic 52–99; PULSE 56–73; RESP 13–23; TEMP 36.2–37.2; O2SAT 93–100
[2022-01-22 01:26] LABS: Partial Thromboplastin Time 92.2 SECONDS (22.3-36.8)
[2022-01-22] MEDS: NITROGLYCERIN OINTMENT 1 INCH DOSE TRANSDERM (05:48)
[2022-01-22] MEDS: HEPARIN SOD/D5W 100 UNITS/ML 25,000 UNITS/250 ML BAG 14 UNITS IV CONT (05:51)
[2022-01-22 08:00] LABS: Basophils Absolute Auto 0.1 K/mm3 (0.0-0.1); Basophils Percent Auto 0.8 % (0.2-1.2); Eosinophils Absolute Auto 0.2 K/mm3 (0-0.3); Eosinophils Percent Auto 3.1 % (0-4.4); Hematocrit 42.7 % (42.0-52.0); Hemoglobin 14.6 g/dL (14.0-18.0); Immature Granulocyte Absolute 0.03 K/mm3 (0.00-0.031); Immature Granulocyte Percent A 0.5 % (0-0.5); Lymphocytes Absolute Auto 1.59 K/mm3 (0.9-3.2); Lymphocytes Percent Auto 24.3 % (18.3-44.2); Mean Corpuscular HGB Conc 34.2 g/dl (32-36); Mean Corpuscular Hemoglobin 30.3 pg (26-34); Mean Corpuscular Volume 88.6 fl (80-100); Mean Platelet Volume 11.2 fl (7.4-10.4); Monocytes Absolute Auto 0.8 K/mm3 (0.1-0.6); Monocytes Percent Auto 11.8 % (2.6-8.5); Neutrophils Absolute Auto 3.9 K/mm3 (1.3-6.7); Neutrophils Percent Auto 59.5 % (45.5-73.1); Platelet Count Result 199 k/mm3 (150-375); Red Blood Count 4.82 M/mm3 (4.6-6.20); Red Cell Distribution Width 12.7 % (11.5-14.5); White Blood Count 6.6 K/mm3 (4.5-10.0)
[2022-01-22] MEDS: SODIUM CHLORIDE 0.9% IV 500 ML 100 ML IV CONT (08:13)
[2022-01-22 08:14] LABS: Partial Thromboplastin Time 95.5 SECONDS (22.3-36.8)
[2022-01-22] MEDS: cycloSPORINE 0.4 ML OPHTH SOLUTION 1 DROP EACH EYE ×2 (08:14→20:25)
[2022-01-22] MEDS: IRBESARTAN 150 MG TABLET PO (08:14)
[2022-01-22] MEDS: hydrALAZINE HCL 25 MG TABLET PO ×2 (08:15→20:25)
[2022-01-22] MEDS: ASPIRIN 81 MG CHEWABLE TABLET PO (08:15)
[2022-01-22] MEDS: CHOLECALCIFEROL 1,000 UNITS TABLET 1000 UNITS PO (08:15)
[2022-01-22] MEDS: ATORVASTATIN 40 MG TABLET PO (08:15)
[2022-01-22] MEDS: MAGNESIUM 13.5 MG TABLET (250 MG MAG GLUCONATE) PO (08:16)
[2022-01-22] MEDS: METOPROLOL TARTRATE 12.5 MG TABLET PO ×2 (08:16→20:25)
[2022-01-22 08:26] LABS: Glucose Point of Care 243 mg/dl (65-105)
[2022-01-22 08:39] LABS: Anion Gap 3 mmol/L (8-16); Blood Urea Nitrogen 18 mg/dL (9-20); Calcium 8.2 mg/dL (8.4-10.2); Carbon Dioxide 27 mmol/L (22-30); Chloride 100 mmol/L (98-107); Estimated CRCL calculation 48 ml/min; Estimated Glomerular Filt Rate > 60; Glucose 255 mg/dL (65-110); Magnesium 1.8 mg/dL (1.6-2.3); Sodium 130 mmol/L (137-145)
--- NOTE | 2022-01-22 09:14 | WPDMODSED ---
Moderate Sedation Note-Pt Data Patient Data Diagnosis: non ST-elevation [place] paroxysmal atrial fibrillation Present Complaint: no complaints this morning Procedure to be performed/Plan: left heart catheterization Allergies Allergy/AdvReac Type Severity Reaction Status Date / Time Sulfa (Sulfonamide Allergy Mild Unknown Verified 01/19/22 11:47 Antibiotics) sulfamethizole Allergy Unknown Unknown Verified 01/19/22 11:47 trimethoprim Allergy Unknown Unknown Verified 01/19/22 11:47 Home Medications Medication Instructions Recorded Confirmed Type apixaban 5 mg tablet 5 mg PO BID 11/29/19 01/19/22 History cyclosporine 0.05 % eye drops in a 1 drop EACH EYE Q12H 11/29/19 01/19/22 History dropperette hydralazine 25 mg tablet 25 mg PO BID tablet 11/29/19 01/19/22 History cholecalciferol (vitamin D3) 25 25 mcg PO DAILY 12/04/20 01/19/22 History mcg (1,000 unit) capsule magnesium 250 mg tablet 250 mg PO DAILY 12/04/20 01/19/22 History diltiazem HCl 240 mg capsule,24 480 mg PO DAILY #180 cap 03/15/21 01/19/22 Rx hr,extended release blood sugar diagnostic See Rx Instructions .ROUTE 06/20/21 01/19/22 Rx .COMPLEX #200 strip flash glucose sensor #2 ea 08/07/21 01/19/22 Rx albuterol sulfate 90 mcg/actuation 1 inh INHALATION Q4H PRN #8.5 g 09/10/21 01/19/22 Rx aerosol inhaler furosemide 20 mg tablet 20 mg PO QAM #90 tablet 09/23/21 01/19/22 Rx ipratropium 20 mcg-albuterol 100 See Rx Instructions .ROUTE 10/14/21 01/19/22 Rx mcg/actuation mist for inhalation .COMPLEX #4 g irbesartan 150 mg tablet 150 mg PO DAILY #90 tablet 11/13/21 01/19/22 Rx pen needle, diabetic 32 gauge x See Rx Instructions .ROUTE 12/24/21 01/19/22 Rx 5/32 .COMPLEX #100 ea insulin glargine 100 unit/mL (3 35 unit SUB-Q DAILY ml 12/31/21 01/19/22 History mL) subcutaneous pen insulin lispro 100 unit/mL 10 unit SUB-Q .QAC ml 12/31/21 01/19/22 History subcutaneous pen pravastatin 20 mg PO HS 01/19/22 01/19/22 History Current Medications: Active Medications Albuterol (Albuterol Sulfate (*Sp) Aerosol 1 Puff) 1 puff INHALATION Q4H PRN PRN Reason: shortness of breath or wheezing Aspirin (Aspirin 81 Mg Chewable Tablet) 81 mg PO DAILY@0800 [facility] Last Admin: 01/22/22 08:15 Dose: 81 mg Documented by: Atorvastatin Calcium (Atorvastatin 40 Mg Tablet) 40 mg PO DAILY [facility] Last Admin: 01/22/22 08:15 Dose: 40 mg Documented by: Cyclosporine (Cyclosporine 0.4 Ml Ophth Solution) 1 drop EACH EYE Q12HR [facility] Last Admin: 01/22/22 08:14 Dose: 1 drop Documented by: Dextrose (Dextrose 50% 25 Gm/50 Ml Syringe) 12.5 gm IV PUSH PRN PRN; Protocol PRN Reason: Hypoglycemia Diltiazem HCl (Diltiazem Hcl Cd 240 Mg Cap.Er.24h) 240 mg PO [facility] Last Admin: 01/22/22 08:14 Dose: 240 mg Documented by: Furosemide (Furosemide 20 Mg Tablet) 20 mg PO [facility] Last Admin: 01/21/22 08:55 Dose: 20 mg Documented by: Glucagon (Glucagon For Inj 1 Mg Vial) 1 mg IM PRN PRN; Protocol PRN Reason: Hypoglycemia Glucose (Glucose Oral Gel 15 Gm Of Glucse In 37.5 Gm Tube) 15 gm PO PRN PRN; Protocol PRN Reason: Hypoglycemia Heparin Sodium (Porcine) (Heparin Sodium 5,000 Units/Ml Vial) 4,000 units IV PUSH PRN PRN PRN Reason: aPTT less than 55 seconds Last Admin: 01/21/22 18:58 Dose: 4,000 units Documented by: Heparin Sodium (Porcine) (Heparin Sodium 5,000 Units/Ml Vial) 3,500 units IV PUSH PRN PRN PRN Reason: aPTT 55 - 70 seconds Hydralazine HCl (Hydralazine Hcl 25 Mg Tablet) 25 mg PO Q12HR [facility] Last Admin: 01/22/22 08:15 Dose: 25 mg Documented by: Dextrose (Dextrose 5% 1,000 Ml) 1,000 mls @ 100 mls/hr IVPB PRN PRN; Protocol PRN Reason: Hypoglycemia Heparin Sodium/Dextrose (Heparin Sodium/D5w 100 Units/Ml) 25,000 units in 250 mls @ 0 mls/hr IV CONT .Q0M MILA; Protocol Last Titration: 01/22/22 08:00 Dose: 0 units/hr, 0 mls/hr Documented by: Sodium Chloride (Normal Saline Iv) 500 mls @ 100 mls/hr IV CONT .Q5H MILA Last Admin: 01/22/22 08:13 Dose: 100 m
--- NOTE | 2022-01-22 10:14 | PM.IMPN ---
Progress Note: A&P Assessment and Plan (1) Non-ST elevation [place] (NSTEMI): Code(s): I21.4 - Non-ST elevation (NSTEMI) myocardial infarction Status: Acute Assessment and Plan: Presented with progressively worsening chest pain and shortness of breath - Troponin peaked at 9.07 - Appreciate cardiology consultation - Planning for cardiac catheterization today - His apixaban has been held - Continue heparin drip - Echocardiogram reviewed with normal EF, grade I diastolic dysfuncition, hypokinetic inferior wall - Await further recommendations following cath - Continue aspirin, metoprolol, diltiazem (2) Paroxysmal atrial fibrillation: Code(s): I48.0 - Paroxysmal atrial fibrillation Status: Acute Assessment and Plan: Rate is controlled - Eliquis on hold - Continue metoprolol and diltiazem (3) COPD (chronic obstructive pulmonary disease): Qualifiers: COPD type: unspecified COPD Qualified Code(s): J44.9 - Chronic obstructive pulmonary disease, unspecified Code(s): J44.9 - Chronic obstructive pulmonary disease, unspecified Status: Acute Assessment and Plan: Not in acute exacerbation - Continue albuterol p.r.n. (4) Type 2 diabetes mellitus with diabetic neuropathy, with long-term current use of insulin: Code(s): E11.40 - Type 2 diabetes mellitus with diabetic neuropathy, unspecified; Z79.4 - custodial (current) use of insulin Status: Acute Assessment and Plan: A1c is 9.2 - Glucose has been elevated 250-350 - Continue accuchecks, SSI, hypoglycemic protocol - Novolog 10 units with meals - Lantus 35 units qHS -Monitor glucose trends and adjust (5) Primary hypertension: Code(s): I10 - Essential (primary) hypertension Status: Acute Assessment and Plan: Blood pressure reviewed and has been generally well controlled - Last BP 144/70 - Continue PO antihypertensives Subjective Date/time seen: 01/22/22 10:14 Interval history: Date of service: 01/22/2022 Reed Blair is an 86-year-old male with a history of atrial fibrillation on chronic anticoagulation (currently on hold), CAD, CHF, diabetes, hypertension, hyperlipidemia is seen in follow-up for NSTEMI. He is feeling well this morning. He notes that he did have an episode of chest pain shortness breath yesterday but he has not had any symptoms today. Shortness of breaths. Walk arm pain, jaw pain. No sweats, nausea, vomiting, dizziness, lightheadedness does admit to being a bit unsteady with his gait, though he notes this is been a chronic issue. Does endorse a cough productive of clear phlegm. States he recent had a bout of bronchitis that he completed treatment for. He states that is typical for him to have a productive cough that goes away shortly after waking up. He has been NPO today while awaiting cardiac catheterization. He endorses some mild edema in his lower extremities which she reports is chronic, stating the left side is usually a little worse than the right. Denies urinary symptoms. Reports he tried to have a bowel movement this morning but he was unable to. He does admit to straining and would like to try a stool softener. He is disappointed that his son cannot be here to visit him as only 1 visitor is allowed and his will be here. Review of Systems Review of Systems: All systems reviewed & are unremarkable except as noted in HPI and below Exam Narrative: General: Thin, well nourished, well appearing 86 year-old male, sitting up in bed, comfortable, NARD Neuro: awake, alert and oriented x4, speech clear, no focal neuro deficits noted HEENMT: normocephalic, atraumatic, EOMI, sclerae anicteric, moist oral mucosa Respiratory: clear to auscultation bilaterally, nonlabored breathing Cardio: regular rate, regular rhythm with S1-S2 Abdomen: nondistended, soft, nontender to palpation Extremities: Trace edema (L>R), erythema, or tenderness to pal
--- NOTE | 2022-01-22 11:14 | ECG_ITS ---
Measurements Intervals [place] Rate: 58 P: 66 [place]: 213 QRS: 60 QRSD: 94 T: 50 QT: 422 QTc: 416 Interpretive Statements SINUS BRADYCARDIA WITH FIRST DEGREE AV BLOCK WITH OCCASIONAL VENTRICULAR PREMATURE COMPLEXES ABNORMAL ECG THE COMPARED TO ECG 01/21/2022 06:10:00 SINUS BRADYCARDIA NOW PRESENT Electronically Signed On 01-22-2022 16:08:04 JIGGER MACHINE OPERATOR by Marco A Dietrich M.D.
--- NOTE | 2022-01-22 11:20 | WPDCARDPROC ---
Cardiac Cath Procedure Note Date of procedure:: 01/22/22 Performing physician:: Michael Lowry MD Indication:: non ST-elevation DC Brief clinical history:: this is an 86-year-old man with no previous history of coronary disease. He does have a history of paroxysmal atrial fibrillation and is currently in sinus rhythm. He entered the hospital with waxing and waning chest pain and has a significant troponin rise compatible with non ST-elevation DC in in this setting an angiogram has been recommended. The procedure had to be delayed for a couple of days as he was taken off of anticoagulation treatment. Procedure Procedure performed:: Left ventriculogram coronary angiogram PCI (VIVIEN) to mid right coronary artery Sedation/Medication given:: fentanyl 50 mg Versed 2 mg case start time 9:54 a.m. case 11 10 Access site:: right femoral artery Estimated blood loss:: 50 cc Procedure note:: patient was brought to the cardiac catheterization lab in the postabsorptive state where the right femoral triangle was prepared and draped in the usual fashion. Anesthesia was provided with 1% lidocaine locally. Using the modified Seldinger technique a 5 Tu[place] sheath punctured in the right femoral artery and left heart catheterization was carried out. a 5 [place] angled pigtail catheter was used to measure left-sided hemodynamics and inject g BADILLO projection. Following this standard 5 [place] FL4 catheter was used to engage inject the left coronary artery and then a 5 [place] WRP catheter was used to engage and inject the right coronary artery. The cineangiograms were then reviewed and PCI of the right coronary artery was then recommended and carried out as detailed below. Prior to PCI the patient had the 5 Tu[place] sheath changed over guidewire for a 6 Tu[place] sheath. The patient was systemically anticoagulated with a bolus and infusion of Angiomax for this intervention. He received 600 mg of clopidogrel prior to the start of intervention as well. Following PCI the patient's sheath was position and he was taken to the holding area for recovery and sheath removal. Procedure was well tolerated and uncomplicated. Findings:: Hemodynamics: Central pressure was 110/70 left ventricle 110 over 5 end-diastolic pressure 14. There was no significant gradient across the aortic valve upon pullback. Left ventricle : the LV is normal in size. The posterior inferior segments are severely hypodynamic. The remainder of the LV contracts well the global ejection fraction is 50-55%. The left main coronary artery is nicely patent the left anterior descending is a diffusely diseased vessel in all segments. There is no high-grade stenosis identified. There is however no angiographically normal segment down to the apex. The major diagonal branch has a proximal stenosis of 80-90%. The circumflex is a medium caliber vessel giving rise to the marginal branch is. There is mild diffuse disease in the circumflex prior to a posterior branch there is a segment in the circumflex where there is 80 % stenosis. There is collateral flow from the left coronary seen to the distal RCA. The right coronary artery is very large caliber and dominant to the posterior circulation the right coronary is severely diffusely diseased in the 2nd portion where there are 2 areas of more than 90% stenosis with MAHIN 2 flow distal to this. The origin of the RPDA has 90% stenosis and then there is diffuse 90% stenosis in its midportion as well. Intervention: The high-grade complex disease in the mid RCA was felt to be the culprit for the patient's presentation and this area was targeted for PCI. The diagnostic JR4 catheter would not engage the RCA and I did not believe that a Kevan guiding catheter which gave adequate support for this. For that reason I chose a 6 Tu[place] AL 0.75 catheter as a guide. Once this was engaged into the right coronary and provided very good support. The right
[2022-01-22 11:36] LABS: Cholesterol 109 mg/dL (0-200); HDL Direct 42 mg/dL; Triglycerides 85 mg/dL (<150)
[2022-01-22 11:46] LABS: LDL Cholesterol Direct 47 mg/dL
--- NOTE | 2022-01-22 13:00 | PCCCNOTE ---
On 01/22/22, the student, [Tory Arnold], provided care and [facility]. I have reviewed the student's documentation and agree with the findings.
--- NOTE | 2022-01-22 15:16 | SUR.PHASEII ---
ekg done at bedside. report called to Lisseth in IMU.
[2022-01-22] MEDS: SODIUM CHLORIDE 0.45% 1,000 ML 125 ML IV CONT (15:48)
[2022-01-22 16:42] LABS: Glucose Point of Care 262 mg/dl (65-105)
[2022-01-22] MEDS: INSULIN ASPART (*BKC) 100 UNITS/ML SUB-Q (17:19)
[2022-01-22] MEDS: INSULIN ASPART (*BKC) 100 UNITS/ML 10 UNITS SUB-Q (17:20)
[2022-01-22 20:13] LABS: Glucose Point of Care 320 mg/dl (65-105)
[2022-01-22] MEDS: DOCUSATE SODIUM 100 MG CAPSULE PO (20:25)
[2022-01-22] MEDS: INSULIN GLARGINE (*BKC) 100 UNITS/ML 35 UNITS SUB-Q (20:26)
[2022-01-23] VITALS (11 sets, daily range): BP systolic 136–140; BP diastolic 52–77; PULSE 59–95; RESP 18–20; TEMP 36.3–37.1; O2SAT 93–96
--- NOTE | 2022-01-23 05:11 | ECG_ITS ---
Measurements Intervals [place] Rate: 67 P: 92 DC: 191 QRS: 45 QRSD: 103 T: 3 QT: 391 QTc: 413 Interpretive Statements SINUS RHYTHM PEAKED T-WAVES AND ANTEROSEPTAL LEADS, CONSIDER HYPERKALEMIA OR HYPERACUTE INJURY PATTERN ABNORMAL ECG Electronically Signed On 01-23-2022 15:21:58 IT COMMUNICATIONS MANAGER by Marco A Dietrich M.D.
[2022-01-23 05:15] LABS: Anion Gap 4 mmol/L (8-16); Blood Urea Nitrogen 15 mg/dL (9-20); Calcium 8.4 mg/dL (8.4-10.2); Carbon Dioxide 27 mmol/L (22-30); Chloride 102 mmol/L (98-107); Estimated CRCL calculation 44 ml/min; Estimated Glomerular Filt Rate 58; Glucose 215 mg/dL (65-110); Potassium 4.2 mmol/L (3.4-5.0); Sodium 133 mmol/L (137-145)
[2022-01-23 08:28] LABS: Glucose Point of Care 196 mg/dl (65-105)
[2022-01-23] MEDS: CLOPIDOGREL BISULFATE 75 MG TABLET PO (09:05)
[2022-01-23] MEDS: MAGNESIUM 13.5 MG TABLET (250 MG MAG GLUCONATE) PO (09:05)
[2022-01-23] MEDS: cycloSPORINE 0.4 ML OPHTH SOLUTION 1 DROP EACH EYE (09:05)
[2022-01-23] MEDS: IRBESARTAN 150 MG TABLET PO (09:05)
[2022-01-23] MEDS: DOCUSATE SODIUM 100 MG CAPSULE PO (09:05)
[2022-01-23] MEDS: ASPIRIN 81 MG CHEWABLE TABLET PO (09:05)
[2022-01-23] MEDS: ROSUVASTATIN 10 MG TABLET 20 MG PO (09:05)
[2022-01-23] MEDS: CHOLECALCIFEROL 1,000 UNITS TABLET 1000 UNITS PO (09:05)
[2022-01-23] MEDS: hydrALAZINE HCL 25 MG TABLET PO (09:05)
[2022-01-23] MEDS: FUROSEMIDE 20 MG TABLET PO (09:05)
[2022-01-23] MEDS: METOPROLOL TARTRATE 12.5 MG TABLET PO (09:05)
[2022-01-23] MEDS: INSULIN ASPART (*BKC) 100 UNITS/ML 10 UNITS SUB-Q ×2 (09:06→13:05)
[2022-01-23 12:48] LABS: Glucose Point of Care 224 mg/dl (65-105)
[2022-01-23] MEDS: INSULIN ASPART (*BKC) 100 UNITS/ML SUB-Q (13:03)
--- NOTE | 2022-01-23 13:31 | PM.PNCARD ---
Progress Note: A&P Assessment and Plan (1) Non-ST elevation ME (NSTEMI): Code(s): I21.4 - Non-ST elevation (NSTEMI) myocardial infarction Status: Acute Assessment and Plan: Patient presented with chest pain, found to have non ST-elevation myocardial infarction. He went to the cardiac pathology lab technician for coronary angiogram yesterday. Findings are as below: 1. Severe diffuse multivessel coronary disease in this 86-year-old gentleman presenting with non ST-elevation ME. The complex high-grade disease in the large dominant mid RCA was felt to be the culprit for this. 2. High-grade diffuse disease in the RPDA which does not appear to be suitable for PCI 3. moderate diffuse disease throughout the entire length of the LAD which does not appear to be flow-limiting. There is 90% stenosis in the origin of D1 4. moderate 70-80% stenosis in the distal portion of the circumflex trunk prior to a posterior branch 5. Inferior posterior akinesia with global ejection fraction of 50-55%. 6. Successful but somewhat complex and difficult PCI of this complex diffusely diseased RCA resulting in the need for a GuideLiner device, the above-mentioned pre dilatation and then two 3.5 mm Orsiro drug-eluting stents covering this entire area with an excellent anatomical result. On dual anti-platelet therapy with Plavix, aspirin. Continue metoprolol Continue statin Will be in triple therapy with plavix, ASA and apixaban for one month, then ASA will be discontinued. (2) Paroxysmal atrial fibrillation: Code(s): I48.0 - Paroxysmal atrial fibrillation Status: Acute Assessment and Plan: History of atrial fibrillation currently maintained in sinus rhythm on diltiazem. Restart apixaban. Subjective Date/time seen: 01/23/22 13:31 Patient is feeling very well today. He denies any recurrent chest pain. No shortness of breath. Review of Systems Constitutional: Constitutional: Reports no additional constitutional complaints Eyes: Eyes: Reports no additional eye complaints ENT: Reports system reviewed and no additional complaints, except as documented Cardiovascular: Cardiovascular: Reports as per HPI and Reports chest pain Respiratory: Respiratory: Reports no additional respiratory complaints Gastrointestinal: Gastrointestinal: Reports no additional gastrointestinal complaints Musculoskeletal: Musculoskeletal: Reports arthralgias Neurologic: Reports system reviewed and no additional complaints, except as documented Psychiatric: Psychiatric: Reports no additional psychiatric complaints Endocrine: Endocrine: Reports no additional endocrine complaints Hematologic/Lymphatic: Hematologic/Lymphatic: Reports no additional hematologic/lymphatic complaints Allergic/Immunologic: Allergic/Immunologic: Reports no additional allergic/immunologic complaints Exam Const: General: no acute distress Other: Pleasant elderly male lying comfortably in bed. HENMT: Mouth: Yes moist mucous membranes Eyes: Sclera: sclerae normal Pupils: Equal, round and reactive pupils present Neck: Neck: supple and no JVD Resp: Effort & Inspection: normal respiratory effort Auscultation: clear to auscultation bilaterally Cardio: Rate: regular rate Rhythm: regular rhythm Other: No auduble murmur GI: Auscultation: normal bowel sounds Skin: General skin exam: normal color Other: Right groin arterial access site free from bleeding, hematoma, or bruit. Neuro: Cranial nerves: Yes Equal, round and reactive pupils present Cognition (Neuro): normal cognition Extrem: General: normal to inspection Other: Very mild pretibial edema. Objective Data Vital Signs Vital Signs: Vital Signs - 24 hr 01/22/22 13:35 01/22/22 13:40 01/22/22 13:45 Temperature Pulse Rate 59 L 63 63 Pulse Rate [Right Pedal (Dorsalis Pedis)] Respiratory Rate 22 H 19 23 H Blood Pressure 138/69 136/68 149/69 H Pulse Oximetry 01/22/22 13:50 01/22
--- NOTE | 2022-01-23 14:18 | PM.DS ---
DS: Admitting Diagnosis Discharge Date 01/23/2022 Admitting Diagnosis NSTEMI DS: Discharge Diagnosis Discharge Diagnosis (1) Non-ST elevation SD (NSTEMI): Code(s): I21.4 - Non-ST elevation (NSTEMI) myocardial infarction Status: Acute Assessment and Plan: Presented with progressively worsening chest pain and shortness of breath - Troponin peaked at 9.07 - He was seen in consultation by Cardiology - Echocardiogram reviewed which showed hypokinetic inferior wall - Apixaban held while awaiting cardiac catheterization and started on heparin drip - Underwent cardiac catheterization on 01/22/[address] Lowry - Catheterization revealed severe diffuse multivessel coronary disease with high-grade disease in the large dominant mid RCA with placement of drug-eluting stent, high-grade diffuse disease in the RPDA not amenable for PCI, moderate LAD disease that is not flow limiting and moderate stenosis of the circumflex trunk - Medication recommendations per Cardiology as follows: - Continue Eliquis - Aspirin for 30 days - Plavix - Crestor 20 mg daily - p.r.n. nitroglycerin - He will follow up with cardiology as an outpatient (2) Paroxysmal atrial fibrillation: Code(s): I48.0 - Paroxysmal atrial fibrillation Status: Acute Assessment and Plan: Rate remained controlled - Eliquis held prior to PCI and was resumed on discharge - Started on metoprolol tartrate 12.5 mg BID - Diltiazem decreased to 240 mg as above (3) COPD (chronic obstructive pulmonary disease): Qualifiers: COPD type: unspecified COPD Qualified Code(s): J44.9 - Chronic obstructive pulmonary disease, unspecified Code(s): J44.9 - Chronic obstructive pulmonary disease, unspecified Status: Acute Assessment and Plan: Not in acute exacerbation - Continue albuterol p.r.n. (4) Type 2 diabetes mellitus with diabetic neuropathy, with long-term current use of insulin: Code(s): E11.40 - Type 2 diabetes mellitus with diabetic neuropathy, unspecified; Z79.4 - MCFP (current) use of insulin Status: Acute Assessment and Plan: A1c is 9.2 - Managed during hospitalization with Accu-Cheks, sliding scale insulin, hypoglycemic protocol - Continue 10 units lispro with meals - Continue Lantus 35 units qHS - Instructed to monitor blood sugars at home with meals and at bedtime and follow-up with PCP for close monitoring (5) Primary hypertension: Code(s): I10 - Essential (primary) hypertension Status: Acute Assessment and Plan: Blood pressure reviewed and were generally well controlled - Continue PO antihypertensives DS: Summary Hospital Course Hospital Course: Date of admission: 01/19/2022 Date of discharge: 01/23/2022 Reed Blair is an 86-year-old male with a history of atrial fibrillation on chronic anticoagulation (currently on hold), CAD, CHF, diabetes, hypertension, hyperlipidemia who presented to the emergency department on 01/19/2022 with complaints of worsening chest pain and shortness of breath ongoing over 2 days. He originally presented to urgent care and was directed to the emergency department where he was noted to have troponin elevation at 5.78. He was admitted to the hospitalist service for further evaluation and management and was seen in consultation by cardiology. Please see above for further details. He underwent cardiac catheterization with PCI as noted above. His symptoms resolved and he was feeling significantly improved. He was eager for discharge home. Discussed with cardiology who was agreeable with plans for discharge. Given the patient's overall improvement, he was determined to no longer require inpatient care. He was discharged in hemodynamically stable condition on 01/23/2022. Discussed with the patient worrisome signs and symptoms for which to return and he was educated on his medications. Status at Discharge Functional status a
== END 2022-01-23 15:30 | disposition home or self-care (01) | DRG 247 ==
LOC: ANHED 12:19 → ANHIMU 14:22
PROVIDERS: Emergency Medicine; Internal Medicine; Nurse Practitioner; Nurse Practitioner Adult Health; Physician Assistant; Specialist; Admitting Provider Chiropractor; Emergency Provider Emergency Medicine; PCP Physician Assistant; Visit Provider Family Medicine
PROC: 4A023N7 Measurement of Cardiac Sampling and Pressure, Left Heart, Percutaneous Approach (ICD-10-PCS; CPT 93452; principal; 2022-01-22 11:30)
PROC: 027035Z Dilation of Coronary Artery, One Artery with Two Drug-eluting Intraluminal Devices, Percutaneous Approach (ICD-10-PCS; 2022-01-22 11:30)
DX: I21.4 Non-ST elevation (NSTEMI) myocardial infarction (principal); I50.32 Chronic diastolic (congestive) heart failure; I48.0 Paroxysmal atrial fibrillation; J44.9 Chronic obstructive pulmonary disease, unspecified; E11.42 Type 2 diabetes mellitus with diabetic polyneuropathy; Z20.822 Contact with and (suspected) exposure to COVID-19; I11.0 Hypertensive heart disease with heart failure; I25.10 Atherosclerotic heart disease of native coronary artery without angina pectoris; E78.5 Hyperlipidemia, unspecified; M35.00 Sjogren syndrome, unspecified; Z79.01 Long term (current) use of anticoagulants; Z79.4 Long term (current) use of insulin; Z87.891 Personal history of nicotine dependence
CPT/HCPCS: 36415; 71046; 80048; 80053; 80061; 81001; 82948; 83036; 83690; 83735; 83880; 84484; 85025; 85610; 85730; 93005; 93458; 96374; 96375; 99213; 99285; A9270; C1725; C1769; C1874; C1887; C1894; C8929; C9600; C9803; G0463; J0583; J1644; J1815; J1940; J2250; J2270; J3010; J7040; Q9957; U0003; U0005

== ENCOUNTER 2022-06-02 13:30 | Outpatient (RCR) | payer MEDICARE, SELFPAY ==
[2022-03-11 16:19] VITALS: PULSE 68
[2022-03-17 14:39] LABS: Glucose Point of Care 318 mg/dl (65-105)
[2022-03-17 14:39] LABS: Glucose Point of Care 328 mg/dl (65-105)
[2022-04-03 14:48] LABS: Glucose Point of Care 114 mg/dl (65-105)
[2022-04-03 14:48] LABS: Glucose Point of Care 82 mg/dl (65-105)
[2022-05-15 14:49] LABS: Glucose Point of Care 113 mg/dl (65-105)
[2022-06-02 14:42] LABS: Glucose Point of Care 308 mg/dl (65-105)
== END 2022-06-02 16:21 | disposition home or self-care (01) ==
LOC: ANHCPREHAB 13:30
PROVIDERS: PCP Physician Assistant; Visit Provider Nurse Practitioner
DX: Z95.5 Presence of coronary angioplasty implant and graft (principal)
CPT/HCPCS: 93798

== ENCOUNTER → 2022-10-08 11:15 | Outpatient (CLI) | payer MEDICARE, SELFPAY ==
--- NOTE | ~2022-10-08 | CT_ITS ---
EXAMINATION: CT diagnostic chest w con DATE: 10/08/2022 12:02 INDICATION: Worsening shortness of breath and cough TECHNIQUE: Transaxial computed tomographic images of the chest were obtained after the administration of 75 cc of Omnipaque 350 intravenous contrast. The dose-length product (DLP) was 340.43 mGy-cm. Ite rative reconstruction was used. COMPARISON: None FINDINGS: There are widespread subpleural reticular and groundglass opacities. There is mild bronchie ctasis of the lower lobes. Calcified pulmonary nodules and calcified bilateral hilar and mediastinal lymph nodes are consistent with old granulomatous disease. No pathologically enlarged thoracic lymph nodes are identified. The heart size is normal. There is calcified coronary artery atherosclerosis. Mild bilateral gynecomastia is noted. There is severe thoracic spondylosis. IMPRESSION: 1. Chronic interstitial lung disease in a pattern of nonspecific interstitial pneumonia (NSIP). Reviewed, dictated and finalized at location F. SPINNER IMPRESSION: 1. Chronic interstitial lung disease in a pattern of nonspecific interstitial p neumonia (NSIP).
[2022-10-08 11:43] LABS: Estimated Glomerular Filt Rate > 60
== END ==
PROVIDERS: PCP Physician Assistant; Visit Provider Physician Assistant
DX: R06.02 Shortness of breath (principal); R05.9 Cough, unspecified; J84.9 Interstitial pulmonary disease, unspecified
CPT/HCPCS: 71260; Q9967

== ENCOUNTER 2022-12-11 12:34 | Outpatient (CLI) | payer MEDICARE, SELFPAY ==
--- NOTE | 2022-12-11 16:31 | WPDSIXMINUTE ---
Six Minute Walk Procedure Procedure Performed Pulmonary Stress Test (6 min walk) Six Minute Walk Six Minute Walk: This is a 6 minute walk test. The test was performed and interpreted in accordance with the 2014 ERS/ATS task force guidelines. Findings: The patient's resting room air oxygen saturation measured by pulse oximetry was 94% and heart rate was 75 bpm. Patient ambulated for 305 meters and oxygen saturation remained 94 to 97%. Heart rate at the end of the study was 79 bpm. The patient did not qualify for supplemental oxygen at rest or with ambulation. There are no prior studies for comparison.
--- NOTE | 2022-12-11 16:33 | WPDPFTINT ---
PFT Procedure Performed PFT Procedure Performed Spirometry with Pre/Post Bronchodilator Plethysmography (Lung Vol) Diffusing Cap (DLCO) Flow Vol Loop PFT Interpretation This is a pulmonary function test with pre and post-bronchodilator spirometry, plethysmography and diffusing capacity. The test was performed and results interpreted in accordance with the 2019 and 2005 ATS/ERS Task Force guidelines respectively using the Global Lung Function Initiative-2012 reference equations. Patient demonstrated good effort and cooperation. Reproducibility criteria were met. The quality of the pre bronchodilator spirometry maneuver was Grade B and post bronchodilator spirometry maneuver was Grade B. Of note the patient had persistent cough throughout the testing. Findings: Spirometry: The contour the inspiratory and expiratory flow tracing are normal. The pre bronchodilator FVC is 2.71 L, 71% predicted. The pre bronchodilator FEV1 is 2.08 L, 75% predicted. The pre bronchodilator FEV1: FVC ratio 77%. The post bronchodilator FVC is 2.49 L, representing an 8% decrease. The post bronchodilator FEV1 is 2.03 L, representing a 3% decrease. The post bronchodilator FEV1: FVC ratio is 81%. Plethysmography: The total lung capacity is 5.32 L, 73% predicted. The functional residual capacity is 3.12 L, 78% predicted. The residual volume is 2.58 L, 91% predicted. Diffusion capacity: The diffusing capacity unadjusted for hemoglobin and carboxyhemoglobin is 18.9, 82% predicted. The diffusing capacity adjusted for alveolar volume is 4.90, 145% predicted. Impression: There is a mild restrictive ventilatory abnormality with a normal FEV1. The spirometry is normal without evidence of an obstructive abnormality. There is no significant improvement after inhaling a single dose of albuterol. The diffusing capacity is normal. There are no prior studies for comparison
== END 2022-12-11 12:35 | disposition home or self-care (01) ==
LOC: ANHPFT 12:35
PROVIDERS: PCP Physician Assistant; Visit Provider Internal Medicine Pulmonary Disease
DX: R06.00 Dyspnea, unspecified (principal); J40 Bronchitis, not specified as acute or chronic; Z72.0 Tobacco use; R94.2 Abnormal results of pulmonary function studies
CPT/HCPCS: 94060; 94618; 94726; 94729

== ENCOUNTER 2022-12-17 11:09 | Outpatient (CLI) | payer MEDICARE, SELFPAY ==
[2022-12-17 13:04] LABS: Creatine Kinase 46 U/L (55-170)
[2022-12-17 13:09] LABS: Rheumatoid Factor < 8.6 IU/ML (<12)
[2022-12-17 13:18] LABS: Vitamin D 25 Hydroxy 45.6 ng/mL
[2022-12-21 08:15] LABS: ANA Cascade Screen Negative (Negative)
[2022-12-21 10:39] LABS: Anti Cyclic Citrullinated Pept 22 Units (<20)
[2022-12-22 22:24] LABS: ANCA Screen Negative (Negative)
[2022-12-23 00:32] LABS: Aldolase 4.7 U/L (<=8.1)
== END 2022-12-17 11:10 | disposition home or self-care (01) ==
LOC: ANHWCLAB 11:13
PROVIDERS: Nurse Practitioner Family; PCP Physician Assistant; Visit Provider Internal Medicine Pulmonary Disease
DX: E11.40 Type 2 diabetes mellitus with diabetic neuropathy, unspecified (principal); E78.5 Hyperlipidemia, unspecified; Z79.4 Long term (current) use of insulin; J98.4 Other disorders of lung; J84.9 Interstitial pulmonary disease, unspecified
CPT/HCPCS: 36415; 82085; 82306; 82550; 86036; 86038; 86200; 86331; 86430; 86606; 86609

== ENCOUNTER 2023-01-05 08:31 | Outpatient (CLI) | payer MEDICARE, SELFPAY ==
--- NOTE | 2023-01-27 01:41 | WPDSLEEPSTUD ---
Sleep Study Date of Study: 01/05/23 Ordering Provider: Michael River MD Interpreting Physician: Nguyen Cordero MD Sleep Study Type: Split Polysomnogram Height: 1.83 m Weight: 86.636 kg Body Mass Index: 25.9 Neck Circumference (inches): 16 [place]: 8 Reason for Sleep Study Tired in the day, frequent naps, low O2 saturation on overnight oximetry * 12/02/2022: Overnight oximetry on room air:?Desaturation to 85%, 2 minutes spent with saturation below 88%, oxygen desaturation index is 31 events per hour. Sleep History Reed Blair is an 87-year-old man with interstitial lung disease. He is tired during the day. He frequently awakens at night with coughing. He does not snore and others do not tell him that he snores. He frequently has trouble sleeping with a cold. He does not wake up gasping for breath at night. He does not sweat excessively at night or notice his heart pounding or beating irregularly night. He occasionally falls asleep during the day but never involuntarily or while driving. He does not have loss of muscle tone with strong emotion. He does not have daytime difficulties due to excessive sleepiness. He does not feel paralyzed on waking or falling asleep. He occasionally has vivid dreamlike scenes on waking or falling asleep. He does not feel afraid to go to sleep. He denies having nightmares. He rarely remembers his dreams. He does not have racing thoughts. He does not feel sad, depressed or anxious. He occasionally has muscular tension. He frequently notices parts of his body jerking. He occasionally kicks at night. He frequently has crawling and aching feelings in his legs and leg pain during the night. He does not have morning jaw pain. He does not grind his teeth during sleep. He occasionally is bothered by pain during the day, occasionally awakened by pain at night. He does not wake up feeling stiff in the morning. He occasionally wakes up with sore achy muscles. He does not wake up with pain in the neck and spine. Normal bedtime is 1:00 a.m., falling asleep within 5 minutes. He wakes 1-2 times at night for a trip to the bathroom. He is able to return to sleep in 5 minutes. 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 He awakens by 9:30 a.m.. He keeps the same schedule on weekends. He estimates getting 8-9 hours of sleep at night. He does take naps in the afternoon or evening. A short nap lasting 10 or 15 minutes may be refreshing. He feels better in the afternoon or evening compared to the morning. Habits: Former smoker. No caffeine. He has 1 alcoholic beverage a week. No recreational substances. [facility] Past Medical History Medical History Abnormal ankle brachial index Atrial fibrillation Benign hypertension Bradycardia CAD (coronary artery disease) CHF (congestive heart failure) COPD (chronic obstructive pulmonary disease) Decreased pulses in feet Hyperlipidemia Hypertension Hypotension due to drugs Myocardial infarction 2021 x2 Non-ST elevation ID (NSTEMI) (~12/2021) Other lack of coordination Sensation of lump in throat Sjogrens syndrome Type 2 diabetes mellitus with diabetic neuropathy, with long-term current use of insulin Surgical History Surgical History History of cardiac cath 2021 History of hemorrhoidectomy History of hernia repair Stented coronary artery 2021 Family History Family History Father Acute myocardial infarction Heart disease Mother Family history of pancreatic cancer Cancer Sibling Diabetes mellitus Social History Social History Smoking packs per day: 1 Smoking cigarettes per day: 20.0 Years smoked: 5 Smoking pack-years: 5.00 Smoking status: Former smoker (Quit 11/23/70) To
[2023-01-28 20:04] VITALS: BMI 25.9
== END 2023-01-06 06:27 | disposition home or self-care (01) ==
LOC: ANHCSM 08:31
PROVIDERS: PCP Physician Assistant; Visit Provider Internal Medicine Pulmonary Disease
DX: G47.33 Obstructive sleep apnea (adult) (pediatric) (principal); G25.81 Restless legs syndrome; I48.91 Unspecified atrial fibrillation; I10 Essential (primary) hypertension; J44.9 Chronic obstructive pulmonary disease, unspecified; E11.40 Type 2 diabetes mellitus with diabetic neuropathy, unspecified; Z79.4 Long term (current) use of insulin; Z87.891 Personal history of nicotine dependence
CPT/HCPCS: 95811

== ENCOUNTER 2023-01-21 14:28 | Outpatient (CLI) | payer MEDICARE, SELFPAY ==
[2023-01-21 16:03] LABS: Rheumatoid Factor < 8.6 IU/ML (<12)
[2023-01-25 09:04] LABS: SS-A <1.0; SS-B <1.0
[2023-01-25 16:06] LABS: Anti Cyclic Citrullinated Pept 19 Units (<20)
== END 2023-01-21 14:29 | disposition home or self-care (01) ==
PROVIDERS: PCP Physician Assistant; Visit Provider Internal Medicine Pulmonary Disease
DX: J84.9 Interstitial pulmonary disease, unspecified (principal); M35.00 Sjogren syndrome, unspecified
CPT/HCPCS: 36415; 86200; 86235; 86430

== ENCOUNTER 2023-02-02 14:22 | Outpatient (CLI) | payer MEDICARE, SELFPAY ==
[2023-02-02 15:41] LABS: Alanine Aminotransferase 50 U/L (6-50); Alkaline Phosphatase 220 U/L (38-126); Anion Gap 6 mmol/L (8-16); Aspartate Amino Transferase 40 U/L (17-59); Bilirubin,Total 0.8 mg/dL (0.2-1.3); Blood Urea Nitrogen 18 mg/dL (9-20); Calcium 8.6 mg/dL (8.4-10.2); Carbon Dioxide 32 mmol/L (22-30); Chloride 95 mmol/L (98-107); Estimated Glomerular Filt Rate 57; Glucose 254 mg/dL (65-110); Sodium 133 mmol/L (137-145)
[2023-02-02 16:00] LABS: Iron 81 ug/dL (49-181)
[2023-02-02 16:10] LABS: Percent Iron Saturation 31 % (20-50)
== END 2023-02-02 14:23 | disposition home or self-care (01) ==
PROVIDERS: PCP Family Medicine; Referring Provider Internal Medicine Pulmonary Disease; Visit Provider Physician Assistant
DX: E11.40 Type 2 diabetes mellitus with diabetic neuropathy, unspecified (principal); Z79.4 Long term (current) use of insulin
CPT/HCPCS: 36415; 80053; 82728; 83540; 83550

== ENCOUNTER 2023-05-04 09:43 | Outpatient (CLI) | payer MEDICARE, SELFPAY ==
--- NOTE | 2023-05-21 12:47 | WPDSLEEPSTUD ---
Sleep Study Date of Study: 05/04/23 Ordering Provider: Michael River MD Interpreting Physician: Nguyen Cordero MD Sleep Study Type: CPAP Titration Height: 1.83 m Weight: 87.543 kg Body Mass Index: 26.2 Neck Circumference (inches): 17.5 [place]: 5 Reason for Sleep Study * 01/05/23 ? Split PSG ? Mild ZECHARIAH with AHI 5.3 and desaturation to 82%, treated with CPAP 7cm EPR 1 using ResMed AirFit P30i. Sleep History Reed Blair is an 88-year-old male with history of hypertension, atrial fibrillation, coronary artery disease s/p ME x 2 in 2021, CHF, COPD, dyslipidemia, and diabetes who presented to the sleep lab for a CPAP titration after a recent split-night polysomnogram showed mild sleep apnea with titration to CPAP 7cm. He has interstitial lung disease. He is tired during the day. He frequently awakens at night with coughing. He does not snore and others do not tell him that he snores. He frequently has trouble sleeping with a cold. He does not wake up gasping for breath at night. He does not sweat excessively at night or notice his heart pounding or beating irregularly night. He occasionally falls asleep during the day but never involuntarily or while driving. He does not have loss of muscle tone with strong emotion. He does not have daytime difficulties due to excessive sleepiness. He does not feel paralyzed on waking or falling asleep. He occasionally has vivid dreamlike scenes on waking or falling asleep. He does not feel afraid to go to sleep. He denies having nightmares. He rarely remembers his dreams. He does not have racing thoughts. He does not feel sad, depressed or anxious. He occasionally has muscular tension. He frequently notices parts of his body jerking. He occasionally kicks at night. He frequently has crawling and aching feelings in his legs and leg pain during the night. He does not have morning jaw pain. He does not grind his teeth during sleep. He occasionally is bothered by pain during the day, occasionally awakened by pain at night. He does not wake up feeling stiff in the morning. He occasionally wakes up with sore achy muscles. He does not wake up with pain in the neck and spine. Normal bedtime is 1:00 a.m., falling asleep within 5 minutes. He wakes 1-2 times at night for a trip to the bathroom. He is able to return to sleep in 5 minutes. 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 He awakens by 9:30 a.m.. He keeps the same schedule on weekends. He estimates getting 8-9 hours of sleep at night. He does take naps in the afternoon or evening. A short nap lasting 10 or 15 minutes may be refreshing. He feels better in the afternoon or evening compared to the morning. Habits: Former smoker. No caffeine. He has 1 alcoholic beverage a week. No recreational substances. [facility] Past Medical History Medical History Abnormal ankle brachial index Atrial fibrillation Benign hypertension Bradycardia CAD (coronary artery disease) CHF (congestive heart failure) Hyperlipidemia Hypertension Hypotension due to drugs Interstitial lung disease Myocardial infarction 2021 x2 Non-ST elevation ME (NSTEMI) (~12/2021) Other lack of coordination Sensation of lump in throat Type 2 diabetes mellitus with diabetic neuropathy, with long-term current use of insulin Surgical History Surgical History History of cardiac cath 2021 History of hemorrhoidectomy History of hernia repair Stented coronary artery 2021 Family History Family History Father Acute myocardial infarction Heart disease Mother Family history of pancreatic cancer Cancer Sibling Diabetes mellitus Social History Social History Smoking packs per day: 1 Smoking cigarettes
[2023-05-21 13:13] VITALS: BMI 26.2
== END 2023-05-05 05:42 | disposition home or self-care (01) ==
LOC: ANHCSM 09:44
PROVIDERS: PCP Family Medicine; Visit Provider Internal Medicine Pulmonary Disease
DX: G47.34 Idiopathic sleep related nonobstructive alveolar hypoventilation (principal); G47.33 Obstructive sleep apnea (adult) (pediatric); G25.81 Restless legs syndrome
CPT/HCPCS: 95811

== ENCOUNTER 2023-06-10 07:47 | Outpatient (CLI) | payer MEDICARE, SELFPAY ==
--- NOTE | ~2023-06-10 | CT_ITS ---
CT Scan of the Chest without Contrast: Clinical Indication: Interstitial lung disease Technique: Contiguous sections were acquired throughout the chest without intravenous contrast. Dose reduction technique was used on this scan by utilizing automated exposure control and iterative recon struction technique. The dose-length product (DLP) was 241.21 mGy-cm. COMPARISON: 10/08/2022 Findings: There is no evidence of any significant mediastinal, hilar or axillary lymphadenopathy. Calcified med iastinal/hilar lymph nodes are present. There are atherosclerotic calcifications of the aorta and cor onary arteries. There is no evidence of pleural or pericardial effusion. There is diffuse subpleural reticulation with peripheral interstitial thickening at the lung bases. S everal calcified granulomas are present. Images through the upper abdomen reveal no abnormalities. Impression: Diffuse subpleural reticulation and bibasilar interstitial thickening, consistent with chronic inters titial disease, similar to prior exam. Evidence of prior granulomatous disease. Reviewed, dictated and finalized at location . Impression: Diffuse subpleural reticulation and bibasilar interstitial thickening, consiste nt with chronic interstitial disease, similar to prior exam. Evidence of prior granulomatous disease.
--- NOTE | 2023-06-10 11:40 | WPDPFTINT ---
PFT Procedure Performed PFT Procedure Performed Spirometry with Pre/Post Bronchodilator Plethysmography (Lung Vol) Diffusing Cap (DLCO) Flow Vol Loop PFT Interpretation This is a pulmonary function test with pre and post-bronchodilator spirometry, plethysmography and diffusing capacity. The test was performed and results interpreted in accordance with the 2019 and 2005 ATS/ERS Task Force guidelines respectively using the Global Lung Function Initiative-2012 reference equations. Patient demonstrated good effort and cooperation. Reproducibility criteria were met. The quality of the pre bronchodilator spirometry maneuver was Grade A and post bronchodilator spirometry maneuver was Grade B. Findings: Spirometry: The contour the inspiratory and expiratory flow tracing are normal. The pre bronchodilator FVC is 2.71 L, 72% predicted. The pre bronchodilator FEV1 is 2.11 L, 77% predicted. The pre bronchodilator FEV1: FVC ratio 78%. The post bronchodilator FVC is 2.52 L, representing a 7% decrease. The post bronchodilator FEV1 is 1.88 L, representing an 11% decrease. The post bronchodilator FEV1: FVC ratio 74%. Plethysmography: The total lung capacity is 5.39 L, 74% predicted. The functional residual capacity is 2.88 L, 72% predicted. The residual volume is 2.68 L, 94% predicted. Diffusing capacity: The diffusing capacity unadjusted for hemoglobin and carboxyhemoglobin is 17.9, 79% predicted. The diffusing capacity adjusted for alveolar volume is 4.85, 145% predicted. In comparison to previous pulmonary function testing on 12/11/2022 the post bronchodilator FVC is unchanged from 2.49 L to 2.52 L. The post bronchodilator FEV1 is unchanged from 2.03 L to 1.88 L. The total lung capacity is unchanged from 5.32 L to 5.39 L. The functional residual capacity is unchanged from 3.12 L to 2.88 L. The residual volume is unchanged from 2.58 L to 2.68 L. The diffusing capacity unadjusted for hemoglobin and carboxyhemoglobin is unchanged from 18.9 to 17.9. The diffusing capacity adjusted for alveolar volume is unchanged from 4.90 to 4.85. Impression: There is a mild restrictive ventilatory abnormality with a normal FEV1. The spirometry is normal without evidence of an obstructive abnormality. There is no significant improvement after inhaling a single dose of albuterol. The diffusing capacity unadjusted for hemoglobin and carboxyhemoglobin is normal and increased when adjusted for alveolar volume. In comparison to previous pulmonary function testing on 12/11/2022 there has been no significant change in the FVC, FEV1, total lung capacity, functional residual capacity, residual volume or diffusing capacity. Clinical correlation is recommended.
== END 2023-06-10 07:48 | disposition home or self-care (01) ==
LOC: ANHPFT 07:48
PROVIDERS: PCP Family Medicine; Visit Provider Internal Medicine Pulmonary Disease
DX: J84.9 Interstitial pulmonary disease, unspecified (principal); R06.00 Dyspnea, unspecified; R94.2 Abnormal results of pulmonary function studies
CPT/HCPCS: 36415; 71250; 80048; 94060; 94726; 94729

== ENCOUNTER 2023-06-10 07:51 | Outpatient (CLI) | payer MEDICARE, SELFPAY ==
[2023-06-10 08:17] LABS: Anion Gap 4 mmol/L (8-16); Blood Urea Nitrogen 21 mg/dL (9-20); Calcium 8.8 mg/dL (8.4-10.2); Carbon Dioxide 32 mmol/L (22-30); Chloride 98 mmol/L (98-107); Estimated Glomerular Filt Rate > 60; Glucose 298 mg/dL (65-110); Potassium 4.4 mmol/L (3.4-5.0); Sodium 134 mmol/L (137-145)
== END 2023-06-10 07:52 | disposition home or self-care (01) ==
PROVIDERS: PCP Family Medicine; Visit Provider Physician Assistant
DX: E87.5 Hyperkalemia (principal)
CPT/HCPCS: 36415; 80048

== ENCOUNTER 2023-10-20 08:04 | Outpatient (CLI) | payer MEDICARE, SELFPAY ==
[2023-10-20 08:50] LABS: Hematocrit 48.5 % (42.0-52.0); Mean Corpuscular Hemoglobin 29.7 pg (26-34); Mean Corpuscular Volume 90.1 fl (80-100); Mean Platelet Volume 11.4 fl (7.4-10.4); Platelet Count Result 203 k/mm3 (150-375); Red Blood Count 5.38 M/mm3 (4.6-6.20); Red Cell Distribution Width 13.2 % (11.5-14.5); White Blood Count 8.3 K/mm3 (4.5-10.0)
[2023-10-20 09:03] LABS: Alanine Aminotransferase 33 U/L (6-50); Alkaline Phosphatase 221 U/L (38-126); Anion Gap 6 mmol/L (8-16); Aspartate Amino Transferase 39 U/L (17-59); Bilirubin,Total 0.9 mg/dL (0.2-1.3); Blood Urea Nitrogen 17 mg/dL (9-20); Calcium 9.1 mg/dL (8.4-10.2); Carbon Dioxide 30 mmol/L (22-30); Chloride 98 mmol/L (98-107); Cholesterol 130 mg/dL (0-200); Estimated Glomerular Filt Rate 57; Glucose 186 mg/dL (65-110); HDL Direct 69 mg/dL; Potassium 4.1 mmol/L (3.4-5.0); Sodium 134 mmol/L (137-145); Triglycerides 79 mg/dL (<150)
[2023-10-20 09:14] LABS: LDL Cholesterol Direct 47 mg/dL
[2023-10-20 11:27] LABS: Hemoglobin A1C 8.4 % (<5.7)
== END 2023-10-20 08:05 | disposition home or self-care (01) ==
LOC: ANHLAB 08:05
PROVIDERS: PCP Family Medicine; Visit Provider Physician Assistant
DX: D64.9 Anemia, unspecified (principal); E11.9 Type 2 diabetes mellitus without complications; Z13.1 Encounter for screening for diabetes mellitus; E78.5 Hyperlipidemia, unspecified
CPT/HCPCS: 36415; 80053; 80061; 83036; 85027

== ENCOUNTER 2023-12-11 12:46 | Outpatient (CLI) | payer MEDICARE, SELFPAY ==
--- NOTE | ~2023-12-11 | CT_ITS ---
EXAMINATION: CT diagnostic chest wo con DATE: 12/11/2023 14:12 INDICATION: Interstitial pulmonary disease TECHNIQUE: Computed tomography (CT) of the chest was performed without intravenous contrast. Automate d exposure control and iterative reconstruction technique were employed. Exam dose: 514.45 mGy-cm to ivette exam DLP. COMPARISON: 06/10/2023 CT chest FINDINGS: There is interlobular septal soft tissue thickening and bronchiectasis at the lung bases in volving particularly the lower lobes, with lesser but similar changes noted at the base of the middle lobe and lingula and in the peripheral upper lobes. There is little interval change since 06/10/2023. There are scattered bilateral calcified pulmonary granulomas and calcified bilateral hilar and medias tinal lymph nodes consistent with old pulmonary granulomatous disease. No hilar or mediastinal mass lesion or lymphadenopathy. Heart size is within normal range. Coronary artery calcifications. Thoracic aortic and great vessel c alcifications. No pericardial or pleural effusion.. IMPRESSION: No significant change of bilateral chronic interstitial fibrotic changes with peripheral distribution, involving particularly the bases of the lower lobes Reviewed, dictated and finalized at [facility]. 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
--- NOTE | 2023-12-14 09:35 | WPDPFTINT ---
PFT Procedure Performed PFT Procedure Performed Spirometry with Pre/Post Bronchodilator Plethysmography (Lung Vol) Diffusing Cap (DLCO) Flow Vol Loop PFT Interpretation Lung volumes were assessed using the body plethysmography technique. The uniformly reduced lung volumes suggest the presence of restrictive respiratory disease. Spirometry results revealed decreased expiratory flow rates with a normal FEV1 to FVC ratio of 77%, which aligns with a diagnosis of restrictive respiratory disease. There was no significant increase in expiratory flow rates after the administration of a bronchodilator. The lung's diffusion capacity is within normal limits at 78% of the predicted value. The flow-volume loop did not show any notable findings. When compared to a previous study conducted in May 2023, there has been little change in post-bronchodilator FVC and FEV1, but the total lung capacity has decreased by approximately 1.2 L. The lung's diffusion capacity has largely remained the same. Impression: Moderate restrictive respiratory disease. Lung diffusion capacity within the normal range.
== END 2023-12-11 12:47 | disposition home or self-care (01) ==
LOC: ANHPFT 12:46
PROVIDERS: PCP Family Medicine; Visit Provider Internal Medicine Pulmonary Disease
DX: J84.9 Interstitial pulmonary disease, unspecified (principal)
CPT/HCPCS: 71250; 94060; 94726; 94729

== ENCOUNTER 2024-06-14 08:28 | Outpatient (CLI) | payer MEDICARE, SELFPAY ==
[2024-06-14 09:08] LABS: Basophils Percent Auto 0.4 % (0.2-1.2); Eosinophils Absolute Auto 0.3 K/mm3 (0-0.3); Eosinophils Percent Auto 3.8 % (0-4.4); Hematocrit 49.6 % (42.0-52.0); Hemoglobin 16.5 g/dL (14.0-18.0); Immature Granulocyte Absolute 0.03 K/mm3 (0.00-0.031); Immature Granulocyte Percent A 0.4 % (0-0.5); Lymphocytes Absolute Auto 1.89 K/mm3 (0.9-3.2); Lymphocytes Percent Auto 25.6 % (18.3-44.2); Mean Corpuscular HGB Conc 33.3 g/dl (32-36); Mean Corpuscular Hemoglobin 30.2 pg (26-34); Mean Corpuscular Volume 90.7 fl (80-100); Mean Platelet Volume 10.9 fl (7.4-10.4); Monocytes Absolute Auto 0.9 K/mm3 (0.1-0.6); Monocytes Percent Auto 12.5 % (2.6-8.5); Neutrophils Absolute Auto 4.2 K/mm3 (1.3-6.7); Neutrophils Percent Auto 57.3 % (45.5-73.1); Platelet Count Result 192 k/mm3 (150-375); Red Blood Count 5.47 M/mm3 (4.6-6.20); Red Cell Distribution Width 13.1 % (11.5-14.5); White Blood Count 7.4 K/mm3 (4.5-10.0)
[2024-06-14 09:22] LABS: Iron 97 ug/dL (49-181)
[2024-06-14 09:24] LABS: Alanine Aminotransferase 34 U/L (6-50); Albumin Level 3.9 g/dL (3.5-5.1); Alkaline Phosphatase 201 U/L (38-126); Anion Gap 8 mmol/L (4-12); Aspartate Amino Transferase 37 U/L (17-59); Bilirubin,Total 0.9 mg/dL (0.2-1.3); Blood Urea Nitrogen 18 mg/dL (9-20); Calcium 8.9 mg/dL (8.4-10.2); Carbon Dioxide 27 mmol/L (22-30); Chloride 100 mmol/L (98-107); Cholesterol 119 mg/dL (0-200); Estimated Glomerular Filt Rate > 60; Glucose 146 mg/dL (65-110); HDL Direct 56 mg/dL; Potassium 4.2 mmol/L (3.4-5.0); Sodium 135 mmol/L (137-145); Triglycerides 89 mg/dL (<150)
[2024-06-14 09:33] LABS: Percent Iron Saturation 38 % (20-50)
[2024-06-14 09:36] LABS: LDL Cholesterol Direct 39 mg/dL
[2024-06-14 09:45] LABS: Creatinine Urine 73.1 mg/dL
[2024-06-14 09:48] LABS: MALB Creatinine Ratio 8.9 mg/g (0-30); Microalbumin Urine Random 6.5 mg/L (0-16.7)
== END 2024-06-14 08:29 | disposition home or self-care (01) ==
PROVIDERS: PCP Family Medicine; Visit Provider Family Medicine
DX: R53.83 Other fatigue (principal); E78.2 Mixed hyperlipidemia; E11.9 Type 2 diabetes mellitus without complications; G25.81 Restless legs syndrome
CPT/HCPCS: 36415; 80053; 80061; 82043; 82728; 83540; 83550; 85025

== ENCOUNTER 2024-11-21 16:26 | Outpatient (CLI) | payer MEDICARE, SELFPAY ==
--- NOTE | ~2024-11-21 | CT_ITS ---
CT Scan of the Chest without Contrast: Clinical Indication: Interstitial pulmonary disease Technique: Contiguous sections were acquired throughout the chest without intravenous contrast. Dose reduction technique was used on this scan by utilizing automated exposure control and iterative recon struction technique. The dose-length product (DLP) was 258.26 mGy-cm. COMPARISON: 12/11/2023 Findings: There is no evidence of any significant mediastinal, hilar or axillary lymphadenopathy. Calcified med iastinal and left hilar lymph nodes are present. There are atherosclerotic calcifications of the aort a and coronary arteries. There is no evidence of pleural or pericardial effusion. There is probable mild diffuse subpleural reticulation. There is mild interstitial thickening of the lung bases bilaterally. 3 mm peripheral right upper lobe pulmonary nodule present (axial image 48). Images through the upper abdomen reveal no abnormalities. Impression: Mild chronic interstitial disease, with peripheral and basilar distribution, as detailed above. 3 mm right upper lobe pulmonary nodule. According to Fleischner Society criteria, for a low-risk vincenzo ent, no further follow-up required. For a high-risk patient, consider 12 month follow-up CT. Reviewed, dictated and finalized at location . STRIPPER Impression: Mild chronic interstitial disease, with peripheral and basilar distribution, as detailed above. 3 mm right upper lobe pulmonary nodule. According to Fleischner Society criteri a, for a low-risk patient, no further follow-up required. For a high-risk patie nt, consider 12 month follow-up CT.
== END 2024-11-21 16:27 | disposition home or self-care (01) ==
LOC: ANHIMG 16:28
PROVIDERS: PCP Family Medicine; Visit Provider Internal Medicine Pulmonary Disease
DX: J84.9 Interstitial pulmonary disease, unspecified (principal); R91.1 Solitary pulmonary nodule
CPT/HCPCS: 71250

== ENCOUNTER 2024-12-06 07:52 | Outpatient (CLI) | payer MEDICARE, SELFPAY ==
[2024-12-06 08:23] LABS: Basophils Percent Auto 0.5 % (0.2-1.2); Eosinophils Absolute Auto 0.2 K/mm3 (0-0.3); Eosinophils Percent Auto 2.6 % (0-4.4); Hemoglobin 15.7 g/dL (14.0-18.0); Immature Granulocyte Absolute 0.04 K/mm3 (0.00-0.031); Immature Granulocyte Percent A 0.5 % (0-0.5); Lymphocytes Absolute Auto 1.82 K/mm3 (0.9-3.2); Lymphocytes Percent Auto 21.9 % (18.3-44.2); Mean Corpuscular HGB Conc 32.7 g/dl (32-36); Mean Corpuscular Hemoglobin 29.5 pg (26-34); Mean Corpuscular Volume 90.2 fl (80-100); Monocytes Percent Auto 12.2 % (2.6-8.5); Neutrophils Absolute Auto 5.2 K/mm3 (1.3-6.7); Neutrophils Percent Auto 62.3 % (45.5-73.1); Platelet Count Result 213 k/mm3 (150-375); Red Blood Count 5.32 M/mm3 (4.6-6.20); Red Cell Distribution Width 13.5 % (11.5-14.5); White Blood Count 8.3 K/mm3 (4.5-10.0)
[2024-12-06 11:32] LABS: Alanine Aminotransferase 28 U/L (6-50); Albumin Level 3.6 g/dL (3.5-5.1); Anion Gap 4 mmol/L (4-12); Aspartate Amino Transferase 34 U/L (17-59); Bilirubin,Total 0.9 mg/dL (0.2-1.3); Blood Urea Nitrogen 18 mg/dL (9-20); Calcium 8.6 mg/dL (8.4-10.2); Carbon Dioxide 33 mmol/L (22-30); Chloride 97 mmol/L (98-107); Estimated Glomerular Filt Rate > 60; Glucose 166 mg/dL (65-110); Potassium 4.2 mmol/L (3.4-5.0); Sodium 134 mmol/L (137-145); Triglycerides 68 mg/dL (<150)
[2024-12-06 11:33] LABS: Alkaline Phosphatase 209 U/L (38-126); Cholesterol 107 mg/dL (0-200); HDL Direct 52 mg/dL
[2024-12-06 11:55] LABS: LDL Cholesterol Direct 33 mg/dL
== END 2024-12-06 07:53 | disposition home or self-care (01) ==
PROVIDERS: PCP Family Medicine; Visit Provider Student in an Organized Health Care Education/Training Program
DX: G47.33 Obstructive sleep apnea (adult) (pediatric) (principal); E11.40 Type 2 diabetes mellitus with diabetic neuropathy, unspecified; Z79.4 Long term (current) use of insulin; I48.0 Paroxysmal atrial fibrillation; I25.10 Atherosclerotic heart disease of native coronary artery without angina pectoris; E78.5 Hyperlipidemia, unspecified; E11.9 Type 2 diabetes mellitus without complications; I11.0 Hypertensive heart disease with heart failure; I50.9 Heart failure, unspecified
CPT/HCPCS: 36415; 80053; 80061; 85025

== ENCOUNTER 2024-12-06 14:45 | Outpatient (CLI) | payer MEDICARE, SELFPAY | END 2024-12-06 14:46 | disposition home or self-care (01) | LOC: ANHPFT 14:46 | PROVIDERS: PCP Family Medicine; Visit Provider Internal Medicine Pulmonary Disease | DX: J84.9 Interstitial pulmonary disease, unspecified (principal) | CPT/HCPCS: 94060; 94726; 94729 ==

== ENCOUNTER 2025-11-21 09:00 | Outpatient (CLI) | payer MEDICARE, SELFPAY ==
--- OUTSIDE RECORDS SUMMARY | 2025-11-21 09:12 | XMS_ITS | Clinical Summary ---
Author Organization [facility] [place] [address] Address [address] [place] [address] Care Team Providers Care Corner Former Name Role Phone Chula Smith MD Primary Care Provider [phone] Allergies Active Allergy Reactions Criticality Noted Date Comments Sulfa (Sulfonamide Antibiotics) Hives,Rash Medium 12/24 Trimethoprim Unknown 03/12/2022 Medications furosemide (LASIX) 20 mg tablet Take 1 tablet (20 mg total) by mouth daily 2 019 Active HUMALOG KWIKPEN INSULIN 100 unit/mL insulin pen 1 019 Active LANTUS SOLOSTAR U-100 INSULIN 100 unit/mL (3 mL) insulin pen INJECT 85 UNITS SUBCUTANEOUSLY D 3 019 Active BD ULTRA-FINE MAKEDA PEN NEEDLE 32 gauge x 5/32 needle USE QID UTD 0 019 Active RESTASIS 0.05 % ophthalmic emulsion INT 1 GTT INTO OU BID 3 018 Active ONETOUCH VERIO strip TEST BS FID 4 019 Active irbesartan (AVAPRO) 150 mg tablet Take 1 tablet (150 mg total) by mouth daily Active Combivent Respimat 20-100 mcg/actuation inhaler 021 Active albuterol HFA (PROVENTIL HFA,VENTOLIN HFA,PROAIR HFA) 90 mcg/actuation inhaler 021 Active Jardiance 25 mg tablet 022 Active loratadine (CLARITIN) 10 mg tablet TAKE 1 TABLET BY MOUTH EVERY DAY NEEDED FOR SEASONAL ALLERGIES 022 Active rosuvastatin (CRESTOR) 20 mg tablet Take 1 tablet (20 mg total) by mouth daily 022 Active nitroglycerin (NITROSTAT) 0.[address] 1 tablet (0.4 mg total) under the tongue every 5 (five) minutes as needed for chest pain Active FeroSuL 325 mg (65 mg iron) tablet Take 1 tablet (325 mg total) by mouth 2 (two) times a day 023 Active montelukast (SINGULAIR) 10 mg tablet Take 1 tablet (10 mg total) by mouth daily 023 Active linaGLIPtin (TRADJENTA) 5 mg tabletIndicatio ns:type 2 diabetes mellitus 1 tablet (5 mg total) Active hydrALAZINE (APRESOLINE) 25 mg tabletIndicatio ns:Benign essential HTN TAKE 1 TABLET(25 MG) BY MOUTH TWICE DAILY 180 tablet 3 025 Active apixaban (Eliquis) 5 mg tabletIndicatio ns:PAF (paroxysmal atrial fibrillation) TAKE 1 TABLET(5 MG) BY MOUTH TWICE DAILY 180 tablet 1 025 Active metoprolol XL (TOPROL-XL) 25 mg extended release tabletIndicatio ns:Coronary artery disease involving [place] coronary artery of [place] heart without angina pectoris,PAF (paroxysmal atrial fibrillation),E ssential hypertension TAKE 1 TABLET(25 MG) BY MOUTH TWICE DAILY 180 tablet 2 025 Active metoprolol XL (TOPROL-XL) 25 mg extended release tabletIndicatio ns:Coronary artery disease involving [place] coronary artery of [place] heart without angina pectoris,PAF (paroxysmal atrial fibrillation),E ssential hypertension Take 1 tablet (25 mg total) by mouth 2 (two) times a day 180 tablet 2 025 2024 Discontinued Active Problems Problem Noted Date Diagnosed Date Mixed diabetic hyperlipidemi a associated with type 2 diabetes mellitus 05/05/2023 S/P drug eluting coronary stent placement 2021 Coronary artery disease involving [place] coronar y artery 03/05/2022 CKD stage 2 due to type 2 diabetes mellitus ([facility]) 09/12/2020 Medication monitoring encounter 09/12/2020 PAF (paroxysmal atrial fibrillation) 08/30/2019 Dizzy 08/30/2019 Chronic anticoagulation 04/05/2019 Essential hypertension 01/10/2019 PSVT (paroxysmal supraventricular tachycardia) 0 01/10/2019 PVD (peripheral vascular disease) 01/10/2019 Controlled type 2 diabetes with neuropathy 01/10 PVC's (premature ventricular contractions) 01/10 Atrial premature contractions 01/10/2019 Resolved Problems Problem Noted Date Diagnosed Date Resolved Date Mixed hyperlipidemia 08/30/2019 023 Intermittent palpitations 01/10/2019 Surgical History Surgery Date Site/Laterality Comments HERNIA REPAIR BAND HEMORRHOIDECTOMY Medical History Medical History Date Comments Hypertension Diabetes mellitus type 2 with neurological manif estations (HCC) Peripheral vascular disease PSVT (paroxysmal supraventricular tachycardia) Family History Medical History Relation Name Comments Heart attack Father O Johnnie Cancer Mother R Johnnie Relation Name Status Comments Father O Johnnie (Age 65) OR Mother R Johnnie (Age 80) Cancer Social History Tobacco Use Types Packs/Day Years Used Date Smoking Tobacco: Former Cigarettes Q uit: 1970 Smokeless Tobacco: Never Tobacco Cessation:Counseling Given: Not Answered Sex and Gender Information Value Date Recorded Sex Assigned at Not on file 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 Gender Identity Not on file Sexual Orientation Not on file Last Filed Vital Signs Vital Sign Reading Time Taken Comments Blood Pressure 134/68 08/15/2025 2:12 PM CDT Pulse 69 08/15/2025 2:12 PM CDT Temperature - - Respiratory Rate - - Oxygen Saturation 95% 08/15/2025 2:12 PM CDT Inhaled Oxygen Concentration - - Weight 94.7 kg (208 lb 11.2 oz) 08/15/2025 2:12 PM CDT Height 182.9 cm (6') 08/15/2025 2:12 PM CDT Body Mass Index 28.3 08/15/2025 2:12 PM CDT Plan of Treatment Health Maintenance Due Date Last Done Comments Albumin Creatinine Ratio, Urine 1936 Depression Screening 1936 Fall Risk Assessment 1935 Hemoglobin A1C 1935 Dilated Eye Exam 1936 Foot Exam 1935 Hepatitis B Screening 02/27/1953 Well Visit 65+ 02/27/2001 DTaP/Tdap/Td Vaccine (1 - Tdap) 01/16/2011 1 Zoster Vaccine (2 of 3) 12/30/2012 11/04/2012 eGFR 10/14/2022 10/14/2021, 04/24, 04/19/2019, Additional history exists Lipid Panel 10/20/2024 10/20/2023, 08/24, 08/16/2020, Additional history exists Covid-19 Vaccine (4 - 2024-2 6 season) 2025 09/08/2021, 02/10/2021, 01/20/2021 Influenza Vaccine (#1) 2025 9, 08/09/2018, 08/10/2017, Additional history exists Pneumococcal vaccine 65+ Completed 015, 11/23/2014, 06/06/2004 Procedures Procedure Name Priority Date/Time Associated Diagnosis Comments LIPID PANEL Routine 10/20/2023 BASIC METABOLIC PANEL Routine 10/14/2021 9:58 AM SENIOR 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 PAF (paroxysmal atrial fibrillation) (HCC) from Last 3 Months or Most Recently Relevant to Health Maintenance Results * Lipid panel (10/20/2023) SCRIBED Cholesterol, Total 130 <200 EXTERNAL LAB SCRIBED HDL 69 >40 EXTERNAL LAB SCRIBED LDL 47 <100 EXTERNAL LAB SCRIBED Triglycerides 79 <150 EXTERNAL LAB Blood us Historical Provider LAB BLOOD ORDERABLES [facility] Result EXTERNAL LAB * (ABNORMAL) Basic metabolic panel (10/14/2021 9:58 AM SENIOR 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) Glucose 218(H) 65 - 99 mg/dL [facility] Comment: Fasting reference interval For someone without known diabetes, a glucose value >125 mg/dL indicates that they may have diabetes and this should be confirmed with a follow-up test. BUN 21 7 - 25 mg/dL [facility] Creatinine 1.27(H) 0.70 - 1.11 mg/dL [facility] Comment: For patients >49 years of age, the reference limit for Creatinine is approximately 13% higher for people identified as -[place]. eGFR NON-AFR. INDONESIAN 51(L) > OR = 60 mL/min/1. 73m2 [facility] EGFR 59(L) > OR = 60 mL/min/1. 73m2 [facility] BUN/creat ratio 17 6 - 22 (calc) [facility] Sodium 132(L) 135 - 146 mmol/L [facility] Potassium, pl 5.4(H) 3.5 - 5.3 mmol/L [facility] Chloride 97(L) 98 - 110 mmol/L [facility] CO2 30 20 - 32 mmol/L [facility] Calcium 9.5 8.6 - 10.3 mg/dL [facility] Blood specimen (specimen) 10/14/2021 9:58 AM SENIOR 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 10/14/2021 9:58 AM SENIOR 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 Caridad Fall MD LAB BLOOD ORDERABLES Final Result [facility] [address] [place] [address] from Last 3 Months or Most Recently Relevant to Health Maintenance Insurance COMMERCIAL GENERIC MEDICARE RAILROAD MEDICARE RAILROAD COMMERCIAL GENERIC Care Teams Corner Former Relationship Specialty Start Date End Date Chula Smith MD PCP - General Family Medicine 02/20/25
--- OUTSIDE RECORDS SUMMARY | 2025-11-21 09:12 | XMS_ITS | Clinical Summary ---
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 Name Role Phone Unavailable Primary Care Provider Unavailabl e Social History Tobacco Use Types Packs/Day Years Used Date Smoking Tobacco: Never Assessed Sex and Gender Information Value Date Recorded Sex Assigned at Not on file Legal Sex Male 7:18 PM CDT Gender Identity Not on file Sexual Orientation Not on file Plan of Treatment Health Maintenance Due Date Last Done Comments DTaP, Tdap and Td Vaccines ( 1 - Tdap) 02/27/1954 Pneumococcal Vaccine: 50+ Ye ars (1 of 1 - PCV) 02/27/1986 Zoster Vaccines (1 of 2) 02/27/1986 RSV Immunization or 60+ Years (1 - 1-dose 75+ series) 02/27/2011 COVID-19 Vaccine ( - 2024-2 6 season) 2025 Influenza Adult (#1) 2025 Hepatitis A Vaccines Aged Out No long er eligible based on patient's age to complete this topic Meningococcal B Vaccine Aged Out No l onger eligible based on patient's age to complete this topic Meningococcal Vaccine Aged Out No alejandra lily eligible based on patient's age to complete this topic RSV Immunizations Under 20 Months Aged Out No longer eligible based on patient's age to complete this topic
--- OUTSIDE RECORDS SUMMARY | 2025-11-21 09:12 | XMS_ITS | Clinical Summary ---
Author Organization [facility] Address [address] [place] [address] Care Team Providers Care Furniture Installer Name Role Phone Gregory Davison MD Primary Care Provider [phone] Allergies Active Allergy Reactions Criticality Noted Date Comments Sulfa Antibiotics Unknown 03/27/2016 Medications insulin lispro (HUMALOG) 100 UNIT/ML Solution by Subcutaneous route 3 times daily (after meals). 32 units with each meal Active insulin glargine (LANTUS) 100 UNIT/ML Solution by Subcutaneous route every evening. 83 units once daily Active diltiazem (CARDIZEM CD) 180 MG CAPSULE SR 24 HR Take 180 mg by mouth 2 times daily. Active irbesartan (AVAPRO) 300 MG Tablet Take 300 mg by mouth daily. Active doxazosin (CARDURA) 4 MG Tablet Take 4 mg by mouth daily. 1.5 tablets each night Active digoxin (LANOXIN) 250 MCG Tablet Take 0.25 mg by mouth daily. Active furosemide (LASIX) 20 MG Tablet Take 20 mg by mouth daily. Active hydrALAZINE 50 MG Tablet Take 50 mg by mouth 3 times daily. Active Cholecalciferol (VITAMIN D3) 1000 UNIT Tablet Take by mouth daily. 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 Gender Identity Not on file Sexual Orientation Not on file Plan of Treatment Health Maintenance Due Date Last Done Comments Hepatitis C Virus (HCV) Screening 1935 TdaP Immunization 1935 Pneumococcal Immunization (5 0+ years) (1 of 1 - PCV) 02/27/1986 Zoster Immunization (1 of 2) 02/27/1986 Medicare Initial AWV [id number] 02/21/2002 Respiratory Syncytial Virus (RSV) Immunization (Adult) (1 - 1-dose 75+ series) 02/27/2011 Influenza Immunization (#1) 2025 SARS-COV-2 Immunization ( season) 2025 09/08/2021, 02/10/2021, 01/20/2021 Hepatitis B Immunization Aged Out No longer eligible based on patient's age to complete this topic Human Papillomavirus (HPV) Immunization (No Doses Required) Completed Meningococcal Immunization (ACWY) Aged Out No longer eligible b ased on patient's age to complete this topic Rotavirus Immunization Aged Out No lo nger eligible based on patient's age to complete this topic Insurance MEDICARE RAILROAD Care Teams Furniture Installer Relationship Specialty Start Date End Date Gregory Davison MD [address] [place] [id number] PCP - General Family Medicine 04/14/16
[2025-11-21 09:22] LABS: Hematocrit 49.4 % (42.0-52.0); Hemoglobin 16.4 g/dL (14.0-18.0); Immature Granulocyte Percent A 0.4 % (0-0.5); Lymphocytes Absolute Auto 1.95 K/mm3 (0.9-3.2); Mean Corpuscular HGB Conc 33.2 g/dl (32-36); Mean Corpuscular Hemoglobin 30.0 pg (26-34); Mean Corpuscular Volume 90.5 fl (80-100); Nucleated Red Blood Cells Absolute Auto 0.000 K/mm3 (0.0-0.012); Nucleated Red Blood Cells Perc 0.0 % (0.0-0.2); Platelet Count Result 214 k/mm3 (150-375); Red Blood Count 5.46 M/mm3 (4.6-6.20); White Blood Count 8.3 K/mm3 (4.5-10.0)
[2025-11-21 09:49] LABS: MALB Creatinine Ratio 6.3 mg/g (0-30)
[2025-11-21 09:54] LABS: Alanine Aminotransferase 38 U/L (6-50); Albumin Level 3.7 g/dL (3.5-5.1); Alkaline Phosphatase 212 U/L (38-126); Anion Gap 3 mmol/L (4-12); Aspartate Amino Transferase 46 U/L (17-59); Bilirubin,Total 1.1 mg/dL (0.2-1.3); Blood Urea Nitrogen 20 mg/dL (9-20); Calcium 9.1 mg/dL (8.4-10.2); Carbon Dioxide 32 mmol/L (22-30); Chloride 101 mmol/L (98-107); Cholesterol 110 mg/dL (0-200); Estimated Glomerular Filt Rate 56; Glucose 163 mg/dL (65-110); HDL Direct 50 mg/dL; Potassium 4.1 mmol/L (3.4-5.0); Sodium 136 mmol/L (137-145); Total Protein 7.2 g/dL (6.3-8.2); Triglycerides 81 mg/dL (<150)
[2025-11-21 09:56] LABS: Free T4 Free Thyroxine 1.05 ng/dL (0.78-2.19)
[2025-11-21 10:15] LABS: Thyroid Stimulating Hormone 4.060 uIU/mL (0.465-4.680)
[2025-11-21 11:38] LABS: Vitamin B12 368.0 pg/mL (239-931)
== END 2025-11-21 09:01 | disposition home or self-care (01) ==
PROVIDERS: Visit Provider Nurse Practitioner Family
DX: E78.2 Mixed hyperlipidemia (principal); E11.69 Type 2 diabetes mellitus with other specified complication; E78.5 Hyperlipidemia, unspecified; E11.40 Type 2 diabetes mellitus with diabetic neuropathy, unspecified; Z79.4 Long term (current) use of insulin
CPT/HCPCS: 36415; 80053; 80061; 82043; 82306; 82607; 84439; 84443; 85025